=== PATIENT | male | born 1965 | race Hispanic/Latino ===

== ENCOUNTER 2017-09-03 21:37 | Inpatient (IN) | payer SELFPAY ==
[2017-09-03 22:17] LABS: Hemoglobin 7.5 g/dL (14.0-18.0); Mean Corpuscular HGB CONC 33.7 g/dL (32.0-36.0); Mean Corpuscular Hemoglobin 25.1 pg (27.0-31.0); Mean Corpuscular Volume 74.3 fl (80.0-94.0); Mean Platelet Volume 7.8 fL (7.4-10.4); Platelet Count 277 thou/uL (130-400); Red Blood Cell (RBC) Count 2.97 mill/uL (4.70-6.10); White Blood Cell (WBC) Count 10.4 thou/uL (4.8-10.8)
[2017-09-03 22:30] LABS: ALT (SGPT) 32 U/L (8-55); AST (SGOT) 48 U/L (5-34); Albumin 3.3 g/dL (3.5-5.0); Alkaline Phosphatase 68 U/L (40-150); Anion Gap 20 mmol/L (10-20); BUN (Urea Nitrogen) 85 mg/dL (8.4-25.7); Bilirubin, Total 0.4 mg/dL (0.2-1.2); Calc. Creatinine Clearance 0 mL/min (70-130); Calcium 6.3 mg/dL (7.8-10.44); Carbon Dioxide 11 mmol/L (22-29); Chloride 111 mmol/L (98-107); Estimated GFR-MDRD 6; Globulin 3.1 g/dL (2.4-3.5); Glucose 94 mg/dL (70-105); Potassium 5.7 mmol/L (3.5-5.1); Protein, Total 6.4 g/dL (6.0-8.3); Sodium 136 mmol/L (136-145)
[2017-09-03 22:37] LABS: #Basophils 0.1 thou/uL (0.0-0.2); #Eosinphils 0.3 thou/uL (0.0-0.7); #Lymphocytes 3.1 thou/uL (1.20-3.40); #Monocytes 0.6 thou/uL (0.11-0.59); #Neutrophils 6.4 thou/uL (1.40-6.50); %Eosinophils 2.5 % (0.0-10.0); %Lymphocytes 29.3 % (21.0-51.0); %Monocytes 6.2 % (0.0-10.0); Elliptocytes SLIGHT = 2-5 cells (100X) (0-1/hpf); MDiff Complete? YES; Microcytosis SLIGHT = 6-15 cells (100X) (0-5/hpf); PLT Morphology Comment Appears Adequate; Schistocytes SLIGHT = 2-5 cells (100X) (0-1/hpf)
[2017-09-03 22:46] LABS: Troponin I 0.023 ng/mL (< 0.028)
[2017-09-03 22:53] LABS: CKMB 27.7 ng/mL (0-6.6)
[2017-09-03] MEDS ORDERED: Lorazepam 2 MG/ML VIAL ONE (23:04)
[2017-09-04 00:50] LABS: Iron 38 ug/dL (65-175); Iron Binding Capacity, Total 328 mcg/dL (261-462)
[2017-09-04 00:59] LABS: Hep B Core Total Ab Non-Reactive (NonReactive); Hep B Surf AB Non-Reactive (NonReactive); Hep B Surf Ag Non-Reactive S/CO (NonReactive); Hep C IgG Ab Non-Reactive (NonReactive)
[2017-09-04 01:24] LABS: Bilirubin Negative (Negative); Blood, Urine Large (Negative); Clarity CLEAR (Clear); Glucose, Urine (Dipstick) 100 mg/dL (Negative); Leukocyte Negative (Negative); Nitrite Negative (Negative); Protein, Urine (Dipstick) 300 mg/dL (Neg-Trace); Specific Gravity, Urine 1.013 (1.002-1.036); Urobilinogen 0.2 mg/dL (0.2-1.0)
[2017-09-04 01:27] LABS: Troponin I 0.023 ng/mL (< 0.028)
[2017-09-04 01:27] LABS: Bacteria/HPF None Seen HPF (None Seen); Hyaline Casts/LPF 0-3 HYALINE CAST LPF (0-3 Hyaline); Pathc Cast-AUWi Flag 0.29 (0-2.49); Squamous Epithelial 0-3 HPF (0-3); WBC/HPF 0-3 HPF (0-3)
[2017-09-04 01:42] LABS: HBSAg Index 0.11 S/CO (0-0.99); Hep B Core Total Index 0.16 S/CO (0-0.79)
[2017-09-04 01:43] LABS: HBSAB Concentration 0.22 mIU/mL; Hep C Index 0.09 S/CO (0-0.79)
--- NOTE | 2017-09-04 02:02 | CON ---
DATE OF CONSULTATION: 09/04/2017 CONSULTING PHYSICIAN: Belinda Chung M.D. REQUESTING PHYSICIAN: Dr. Oakes, ER physician. REASON FOR CONSULTATION: Advanced kidney disease. IMPRESSION: 1. Advanced kidney disease stage 5/end-stage renal disease. 2. Hyperkalemia in the context of problem #1. 3. Severe metabolic acidosis. 4. Anemia of chronic kidney disease. 5. Likely diabetic nephropathy with anasarca/nephrotic syndrome. PLAN: 1. Emergent hemodialysis to address the hyperkalemia, severe metabolic acidosis. 2. Iron studies. 3. Erythropoiesis stimulating agent. 4. I did have an extensive discussion with the family with different modalities of dialysis and the patient is leaning towards peritoneal dialysis. 5. We will initiate dialysis indication. 6. Eventually, we will consult the surgeon to secure dialysis access including peritoneal dialysis. Meanwhile, we will have patient undergo ultrasound vein mapping to evaluate the patient's vasculatur e. 7. Renally dose all medications. 8. Further management will be dependent on the clinical course. HISTORY OF PRESENT ILLNESS: History is that of 52-year-old gentleman with longstanding diabetes aljulisa hobson complicated by retinal bleeding who has been getting his kidney care somewhere in [place] and gett ing close to the point of being initiated on hemodialysis. The patient does have baseline lower extr emity edema up to the knee; however, recently this has progressed to involve the thigh, the groin, th e scrotal area, and the penis. As a result of these, patient's panic and took the patient down to the ER in [place] from where patient was transferred over to us here given the degree of renal dy sfunction. The patient noted with a creatinine of 9, potassium of 5.7, severe metabolic acidosis and no evidence of anasarca. As a result of this, the decision has been taken to involve Renal in the m anagement of this case. The patient denies poor appetite. Denies nausea or vomiting; however, the p atient feels cold. PAST MEDICAL HISTORY: Significant for diabetes with diabetic nephropathy, diabetic retinopathy, adva nced chronic kidney disease stage 5, anemia of chronic kidney disease. MEDICATIONS: Reviewed as documented on [employer]. ALLERGIES: No known drug allergy. FAMILY HISTORY: No family history of kidney disease. SOCIAL HISTORY: The patient is . Denies alcohol, tobacco or illicit drug use. REVIEW OF SYSTEMS: As documented in the body of the history. All the other systems were reviewed an d found not to be significantly related to the presenting illness. LABORATORY INVESTIGATION: Showed a bicarbonate of 11, potassium of 5.7, creatinine 9.09 with BUN of 85. CBC showed hemoglobin of 7.5. PHYSICAL EXAMINATION: GENERAL: The patient was found to be ill looking, hemodynamically stable, afebrile. HEENT: Unremarkable. CARDIOVASCULAR SYSTEM: First and second heart sounds were heard. RESPIRATORY SYSTEM: Clear to auscultation. DIGESTIVE SYSTEM: Reviewed a distended abdomen. EXTREMITIES: Showed 4+ bilateral lower extremity edema. SKIN: No new gross rash. LYMPHATICS: No peripheral lymphadenopathy. SUMMARY: A 52-year-old gentleman with end-stage renal disease, hyperkalemia, and metabolic acidosis, who is now being admitted for further management. Thank you for this consultation. We will follow with you.
[2017-09-04] MEDS ORDERED: Ondansetron HCl/PF 4 MG/2 ML Vial IVP PRN (02:08)
[2017-09-04] MEDS ORDERED: Ondansetron ODT 4 MG TAB SL PRN (02:08)
[2017-09-04 03:19] VITALS: BMI 29.1
[2017-09-04 05:17] LABS: Troponin I 0.032 ng/mL (< 0.028)
[2017-09-04 05:43] LABS: Albumin 3.1 g/dL (3.5-5.0); Anion Gap 17 mmol/L (10-20); BUN (Urea Nitrogen) 67 mg/dL (8.4-25.7); BUN/Creatinine Ratio 9.31; Calc. Creatinine Clearance 14 mL/min (70-130); Calcium 7.3 mg/dL (7.8-10.44); Carbon Dioxide 17 mmol/L (22-29); Chloride 108 mmol/L (98-107); Estimated GFR-MDRD 8; Glucose 80 mg/dL (70-105); Phosphorus 5.5 mg/dL (2.3-4.7); Potassium 4.2 mmol/L (3.5-5.1); Sodium 138 mmol/L (136-145)
[2017-09-04] MEDS ORDERED: Tuberculin PPD 0.1 ML VIAL I-DERMAL SCH (07:00)
[2017-09-04] MEDS ORDERED: Epoetin (ESRD) 20,000 UNITS/ML SC SCH (09:00)
[2017-09-04] MEDS ORDERED: Heparin 1,000 UNITS/ML VIAL ONE ×2 (11:11)
[2017-09-04] MEDS ORDERED: Dextrose 5% in Water 1,000 ML IV PRN (11:16)
[2017-09-04] MEDS ORDERED: HumaLOG 300 UNITS/3 ML VIAL SC PRN (11:16)
[2017-09-04] MEDS ORDERED: Acetaminophen 325 MG TAB PO PRN (11:16)
[2017-09-04] MEDS ORDERED: Acetaminophen 650 MG Suppository PR PRN (11:16)
[2017-09-04] MEDS ORDERED: Dextrose 50% Abboject 50 ML SYRINGE SLOW IVP PRN (11:16)
[2017-09-04] MEDS: Acyclovir 800 mg Tablet PO SCH ×4 (11:47→23:54)
--- NOTE | 2017-09-04 11:53 | HP ---
PRIMARY CARE PHYSICIAN: Dr. Fuentes Pool in [place], [place]. CHIEF COMPLAINT: Acute renal failure. HISTORY OF PRESENT ILLNESS: is a pleasant 52-year-old gentleman who was seen at [facility] following transfer from emergency room at [facility] on 09/04/2017. He reports that he had swelling of both lower extremities below the knees since January or February o last year. He saw a busgirl in [place]. He has followup scheduled next week. Yesterday, he n oticed swelling from the waist down. He therefore went to the emergency room. He was found to be in acute renal failure. He was therefore transferred here. The patient denies any chest pain, shortne ss of breath, fevers or chills. REVIEW OF SYSTEMS: The following complete review of systems was negative, unless otherwise mentioned in the HPI or below: Constitutional: Weight loss or gain, ability to conduct usual activities. Skin: Rash, itching. Eyes: Double vision, pain. ENT/Mouth: Nose bleeding, neck stiffness, pain, tenderness. Cardiovascular: Palpitations, dyspnea on exertion, orthopnea. Respiratory: Shortness of breath, wheezing, cough, hemoptysis, fever or night sweats. Gastrointestinal: Poor appetite, abdominal pain, heartburn, nausea, vomiting, constipation, or diarr hea. Genitourinary: Urgency, frequency, dysuria, nocturia. Musculoskeletal: Pain, swelling. Neurologic/Psychiatric: Anxiety, depression. Allergy/Immunologic: Skin rash, bleeding tendency. PAST MEDICAL HISTORY: Significant for diabetes mellitus on insulin therapy, hypertension, shingles, and renal insufficiency. PAST SURGICAL HISTORY: Eye surgery. SOCIAL HISTORY: Occasional alcohol use, no recreational drug use or tobacco use. FAMILY HISTORY: Significant for diabetes mellitus. ALLERGIES: No known drug allergies. CURRENT MEDICATIONS: Include acyclovir 800 mg 5 times a day, amlodipine 10 mg daily, Lipitor 40 mg a t bedtime, Coreg 6.25 mg 2 times a day, furosemide 40 mg daily, Novolin 70/30 10 units 2 times a day, tramadol 50 mg every 6 hours as needed. PHYSICAL EXAMINATION: GENERAL: On examination, is awake and alert, not in acute distress. VITAL SIGNS: He is afebrile. Blood pressure is 140/89, pulse is 83, he is breathing at rate of 18, and saturating 96% on room air. EYES: No scleral icterus. No conjunctival pallor. ENT: Moist mucosal membranes. No oropharyngeal erythema or exudates. NECK: Supple, nontender, normal range of movement. Trachea is midline. RESPIRATORY: Accessory muscles of breathing are not active. Chest wall movements are symmetric bila terally. LUNGS: Clear to auscultation without wheeze, rhonchi or crepitations. CARDIOVASCULAR: S1 and S2 are heard, regular. LUNGS: Peripheral pulses palpable. No carotid bruit, no pericardial rub. ABDOMEN: Soft, nontender, bowel sounds are heard, no hepatomegaly, no splenomegaly. NEUROLOGIC: Cranial nerves II-XII intact. Deep tendon reflexes are 2+. MUSCULOSKELETAL: Power is 5/5 in all 4 extremities. SKIN: He has herpes zoster over the right upper back. He also has tattoos. He has edema of both lo wer extremities as well as the lower abdominal wall. LYMPHATIC: No cervical lymphadenopathy. PSYCHIATRIC: Normal mood, normal affect. Patient is oriented to person, place, and time. IMAGING DATA AND LABORATORY DATA: ' labs and investigations were reviewed. I reviewed his electrocardiogram, which shows normal sinus rhythm, with right bundle branch block. No ST changes t o suggest an acute coronary syndrome. I also reviewed his chest x-ray, which does not show any pulmo nary infiltrates. Laboratory investigations show normal white count, microcytic anemia with hemoglob in 7.5, normal platelet count, troponin I indeterminate at 0.32, normal sodium, normal potassium, almaz vated blood urea nitrogen of 67 and elevated creatinine of 7.20. Calcium is low at 7.3, phosphorus i s elevated at 5.5. Urinalysis is positive for protein, glucose and blood. ASSESSMENT AND PLAN: is a pleasant 52-year-old gentleman who was seen at [facility] on 09/04/2017. His problem list includes: 1. End-stage renal disease. is presenting with end-stage renal disease. He was seen by Nephrology Service and was started on dialysis overnight. He has a dialysis catheter in the right gr oin. After discussion with Nephrology Service, patient is leaning towards peritoneal dialysis. 2. Anemia: Likely secondary to chronic kidney disease. Erythropoietin per Nephrology Service. 3. Diabetes mellitus: Continue home medications, start Accu-Cheks and insulin sliding scale. 4. Hypertension: Monitor vital signs, titrate antihypertensives as needed. 5. Troponin elevation: Troponin is in the indeterminate range. The patient does not have any compl aints in the form of chest pain, etc. Troponin elevation could be secondary to volume overload. We will trend troponins. If worsening, patient may need a stress test to rule out ischemia on the cardi ac muscle. Many thanks for allowing me to participate in your patient's care. Please feel free to contact me wi th any questions or concerns. LEVEL OF RISK: High. LEVEL OF COMPLEXITY: High.
--- NOTE | 2017-09-04 13:26 | ULT ---
BILATERAL UPPER EXTREMITY ARTERIAL AND VENOUS DOPPLER FOR VENOUS ACCESS: HISTORY: Dialysis access. ESRD. COMPARISON: None. TECHNIQUE: Real-time, terry scale, Doppler, and spectral analysis of the bilateral upper extremity arterial and v enous systems. FINDINGS: Right Side: Brachial artery 5.8 mm Renal artery 2.6 mm Ulnar artery 1.7 mm CEPHALIC: Proximal humerus 3.3 mm Mid humerus 3.1 mm Distal 4.3 mm Elbow 2.3 mm Proximal forearm 1.0 mm Mid 3.4 mm Distal 1.2 mm BASILIC: Proximal humerus 6.7 mm Mid humerus 6.2 mm Distal 5.3 mm Elbow 3.6 mm Proximal forearm 1.5 mm Mid 1.5 mm Distal 1.5 mm Left Side: Brachial artery 5.9 mm Radial artery 2.5 mm Ulnar artery 2.4 mm CEPHALIC: Proximal humerus 4.1 mm Mid humerus 3.5 mm Distal 4.1 mm Elbow 5.0 mm Proximal forearm 3.5 mm Mid 3.8 mm Distal 2.3 mm BASILIC: Proximal humerus 7.2 mm Mid humerus 5.2 mm Distal 4.8 mm Elbow 3.8 mm Proximal forearm 1.8 mm Mid 1.7 mm Distal 1.4 mm IMPRESSION: Patent vessels with sizes as above. POS: [facility]
[2017-09-04] MEDS ORDERED: Heparin 5,000 UNITS/ML VIAL SC SCH (15:00)
[2017-09-04 16:02] LABS: Troponin I 0.019 ng/mL (< 0.028)
[2017-09-04 16:04] LABS: CKMB 16.8 ng/mL (0-6.6); Critical Call CKMBM RESULT DECREASING
[2017-09-04] MEDS ORDERED: Iron Sucrose Complex 200 MG in Sodium Chloride 0.9% 250 ML 250 ML IVPB SCH (20:00)
[2017-09-04] MEDS ORDERED: Sodium Ferric Gluconate 250 MG in Sodium Chloride 0.9% 100 ML IVPB SCH (20:00)
[2017-09-04] MEDS: Carvedilol 6.25 MG TAB PO SCH (20:43)
[2017-09-04] MEDS ORDERED: Insulin NPH/Reg Insulin Hm 300 UNITS/3 ML VIAL SC SCH ×2 (21:00)
[2017-09-04] MEDS ORDERED: Atorvastatin Calcium 40 MG TAB PO SCH (21:00)
[2017-09-04 21:32] LABS: Troponin I 0.015 ng/mL (< 0.028)
[2017-09-04 21:33] LABS: CKMB 13.5 ng/mL (0-6.6); Critical Call CKMBM RESULT DECREASING
--- NOTE | 2017-09-05 01:15 | PRG ---
DATE OF SERVICE: 09/04/2017 SUBJECTIVE: The patient is seen and examined, seems to be doing so much better as compared to yester day of presentation. OBJECTIVE: VITAL SIGNS: Afebrile with temperature 98.1, pulse 84, respiratory rate 18, O2 sat 94% with blood pr essure 136/78. HEENT: Unremarkable with moist oral mucosa. Neck is supple. No conjunctival injection or icterus. CARDIOVASCULAR: First and second sounds were heard. RESPIRATORY: Clear to auscultation. DIGESTIVE: Revealed a benign abdomen with positive bowel sounds. EXTREMITIES: No peripheral edema. SKIN: No new gross rash. LYMPHATICS: No lymphadenopathy. LABORATORY INVESTIGATION: Showed hemoglobin 7.5 as of yesterday and none was drawn today. Chemistry showed a potassium of 4.2, bicarbonate was 17, BUN of 67 with a creatinine of 7.2, phosphorus 5.5 an d calcium 7.3. IMPRESSION: 1. End-stage renal disease, just got initiated on hemodialysis. 2. Anemia of chronic kidney disease. 3. Hyperkalemia, resolved. 4. Hyperparathyroidism with hyperphosphatemia. PLAN: 1. We will continue with hemodialysis with ultrafiltration as tolerated by hemodynamics. 2. We will start iron supplementation. 3. Patient to be started on calcitriol as well as phosphorus binders. 4. Further management to be dependent on the clinical course.
[2017-09-05 05:18] LABS: #Basophils 0.1 thou/uL (0.0-0.2); #Eosinphils 0.2 thou/uL (0.0-0.7); #Lymphocytes 2.8 thou/uL (1.20-3.40); #Monocytes 0.5 thou/uL (0.11-0.59); #Neutrophils 3.7 thou/uL (1.40-6.50); %Eosinophils 2.1 % (0.0-10.0); %Lymphocytes 39.1 % (21.0-51.0); %Monocytes 7.3 % (0.0-10.0); %Neutrophils 50.5 % (42.0-75.0); Hemoglobin 7.8 g/dL (14.0-18.0); Mean Corpuscular HGB CONC 34.6 g/dL (32.0-36.0); Mean Corpuscular Hemoglobin 26.5 pg (27.0-31.0); Mean Corpuscular Volume 76.6 fl (80.0-94.0); Platelet Count 242 thou/uL (130-400); RBC Distribution Width 16.8 % (11.5-14.5); Red Blood Cell (RBC) Count 2.95 mill/uL (4.70-6.10); White Blood Cell (WBC) Count 7.2 thou/uL (4.8-10.8)
[2017-09-05 05:36] LABS: Albumin 2.7 g/dL (3.5-5.0); Anion Gap 14 mmol/L (10-20); BUN (Urea Nitrogen) 73 mg/dL (8.4-25.7); BUN/Creatinine Ratio 8.61; Calc. Creatinine Clearance 12 mL/min (70-130); Calcium 6.9 mg/dL (7.8-10.44); Carbon Dioxide 19 mmol/L (22-29); Chloride 108 mmol/L (98-107); Estimated GFR-MDRD 7; Glucose 197 mg/dL (70-105); Phosphorus 6.9 mg/dL (2.3-4.7); Potassium 4.4 mmol/L (3.5-5.1); Sodium 137 mmol/L (136-145)
[2017-09-05] MEDS ORDERED: Mag-Al 1200 mg/1200 mg/30 ML UDCUP PO PRN (07:22)
[2017-09-05] MEDS ORDERED: Loratadine 10 MG TAB PO PRN (07:22)
[2017-09-05] MEDS ORDERED: Temazepam 15 MG CAP PO PRN (07:22)
[2017-09-05] MEDS ORDERED: Sodium Chloride 0.65% Nasal 44 ML BOT EA NARE PRN (07:22)
[2017-09-05] MEDS ORDERED: Artificial Tears 18 DROP/0.9 ML EA EYE PRN (07:22)
[2017-09-05] MEDS ORDERED: Loperamide HCl 2 MG CAP PO PRN (07:22)
[2017-09-05] MEDS ORDERED: Ondansetron HCl/PF 4 MG/2 ML Vial IVP PRN (07:22)
[2017-09-05] MEDS ORDERED: Milk Of Magnesia 30 ML UDCUP PO PRN (07:22)
[2017-09-05] MEDS ORDERED: Chloraseptic Spray 180 ml Bottle PO PRN (07:22)
[2017-09-05] MEDS ORDERED: Eucerin (Mineral Oil/Petrolatum,White) 30 gm Jar TOP PRN (07:22)
[2017-09-05] MEDS ORDERED: hydrALAZINE 20 MG/ML VIAL SLOW IVP PRN (07:22)
[2017-09-05] MEDS ORDERED: Ondansetron ODT 4 MG TAB PO PRN (07:22)
[2017-09-05] MEDS ORDERED: Senokot 8.6 MG TAB PO PRN (07:22)
[2017-09-05] MEDS ORDERED: Diabetic Tussin 200 MG/10 ML UDCUP PO PRN (07:22)
[2017-09-05] MEDS ORDERED: Insulin Regular 300 UNITS/3 ML VIAL SC PRN (07:24)
[2017-09-05] MEDS: Calcium Acetate 667 MG CAP PO SCH ×3 (08:18→17:47)
[2017-09-05] MEDS: Acyclovir 800 mg Tablet PO SCH ×4 (08:18→20:59)
[2017-09-05] MEDS: Famotidine 20 MG TAB PO SCH (08:20)
[2017-09-05] MEDS: Amlodipine 10 MG TAB PO SCH ×2 (08:20→14:32)
[2017-09-05] MEDS: Carvedilol 6.25 MG TAB PO SCH ×2 (08:20→21:07)
[2017-09-05] MEDS: Ferrous Sulfate 325 MG TAB PO SCH (08:20)
[2017-09-05] MEDS: Heparin 5,000 UNITS/ML VIAL SC SCH ×2 (08:21→21:08)
[2017-09-05] MEDS: Calcitriol 0.25 MCG CAP PO SCH (08:21)
[2017-09-05] MEDS: Insulin NPH/Reg Insulin Hm 300 UNITS/3 ML VIAL SC SCH ×2 (08:22→21:06)
[2017-09-05] MEDS ORDERED: Iron Sucrose Complex 100 MG in Sodium Chloride 0.9% 100 ML IVPB SCH (09:00)
[2017-09-05] MEDS: Sodium Ferric Gluconate 125 MG in Sodium Chloride 0.9% 100 ML IVPB SCH ×2 (09:00→14:32)
[2017-09-05] MEDS ORDERED: Heparin 1,000 UNITS/ML VIAL ONE (11:11)
--- NOTE | 2017-09-05 11:20 | PDOC.PN ---
- Subjective Encounter Start Date: 09/05/17 Encounter Start Time: 07:30 -: old records requested/rev Patient seen and examined. No new complaints. No overnight events - Objective MAR Reviewed: Yes Vital Signs & Weight: Vital Signs (12 hours) Temp Pulse Resp BP BP Pulse Ox 09/05/17 08:20 82 130/74 09/05/17 08:00 98.0 F 82 18 09/05/17 07:57 98.0 F 81 18 130/74 95 09/05/17 04:00 81 18 121/75 95 09/05/17 00:00 85 18 144/83 H Weight Weight 180 lb 9.6 oz I&O: 09/04/17 09/05/17 09/06/17 06:59 06:59 06:59 Intake Total 240 Balance 240 Result Diagrams: 09/05/17 04:33 09/05/17 04:33 Additional Labs: Accuchecks 09/05/17 09/04/17 09/04/17 11:03 20:45 16:46 POC Glucose 209 H 124 H 108 09/04/17 11:10 POC Glucose 300 H EKG Reviewed by me: Yes Phys Exam - Physical Examination Constitutional: NAD HEENT: PERRLA, moist MMs, sclera anicteric Neck: no JVD, supple Respiratory: no wheezing, no rales, no rhonchi Cardiovascular: RRR, no significant murmur, no rub Gastrointestinal: soft, non-tender, no distention, positive bowel sounds Musculoskeletal: pulses present, edema present Neurological: non-focal, normal sensation, moves all 4 limbs Psychiatric: normal affect, A&O x 3 Skin: no rash, normal turgor Dx/Plan (1) ESRD needing dialysis Code(s): N18.6 - END STAGE RENAL DISEASE; Z99.2 - DEPENDENCE ON RENAL DIALYSIS Status: Acute (2) Elevated CK-MB level Code(s): R74.8 - ABNORMAL LEVELS OF OTHER SERUM ENZYMES Status: Acute (3) Anemia of renal disease Code(s): D63.1 - ANEMIA IN CHRONIC KIDNEY DISEASE Status: Acute (4) Hyperkalemia Code(s): E87.5 - HYPERKALEMIA Status: Acute (5) Metabolic acidosis Code(s): E87.2 - ACIDOSIS Status: Acute (6) Secondary hyperparathyroidism of renal origin Code(s): N25.81 - SECONDARY HYPERPARATHYROIDISM OF RENAL ORIGIN Status: Acute (7) Diabetes type 2, controlled Code(s): E11.9 - TYPE 2 DIABETES MELLITUS WITHOUT COMPLICATIONS Status: Chronic (8) Dyslipidemia Code(s): E78.5 - HYPERLIPIDEMIA, UNSPECIFIED Status: Chronic (9) Hypertension Code(s): I10 - ESSENTIAL (PRIMARY) HYPERTENSION Status: Chronic - Plan cont current plan of care, plan discussed w/ family, DVT proph w/heparin * today 2nd day for HD * check urine protein and creatinine * will need outpt HD arrangement * medication reviewed as below * symptomatic treatment. * reduce insulin 5 unit sc bid * discussed with family Review of Systems - Review of Systems Constitutional: negative: fever, chills, sweats, weakness, malaise, other Eyes: negative: Pain, Vision Change, Conjunctivae Inflammation, Eyelid Inflammation, Redness, Other ENT: negative: Ear Pain, Ear Discharge, Nose Pain, Nose Discharge, Nose Congestion, Mouth Pain, Mouth Swelling, Throat Pain, Throat Swelling, Other Respiratory: negative: Cough, Dry, Shortness of Breath, Hemoptysis, SOB with Excertion, Pleuritic Pain, Sputum, Wheezing Cardiovascular: negative: chest pain, palpitations, orthopnea, paroxysmal nocturnal dyspnea, edema, light headedness, other Gastrointestinal: negative: Nausea, Vomiting, Abdominal Pain, Diarrhea, Constipation, Melena, Hematochezia, Other Genitourinary: negative: Dysuria, Frequency, Incontinence, Hematuria, Retention , Other Musculoskeletal: negative: Neck Pain, Shoulder Pain, Arm Pain, Back Pain, Hand Pain, Leg Pain, Foot Pain, Other Skin: negative: Rash, Lesions, Abhinav, Bruising, Other - Medications/Allergies Allergies/Adverse Reactions: Allergies Allergy/AdvReac Type Severity Reaction Status Date / Time No Known Drug Allergies Allergy Verified 09/04/17 00:06 Medications: Current Medications Acetaminophen (Tylenol) 650 mg PO Q4H PRN PRN Reason: Headache/Fever or Pain Acyclovir (Zovirax) 800 mg PO 5XD [facility] Last Admin: 09/05/17 08:18 Dose: 800 mg Al Hydroxide/Mg Hydroxide (Maalox) 15 ml PO Q4H PRN PRN Reason: Heartburn or Indigestion Amlodipine Besylate (Norvasc) 10 mg PO DAILY [facility] Last Admin: 09/05/17 08:20 Dose: Not Given Artificial Tears (Tears Naturale) 0 drop EA EYE PRN PRN PRN Reason: Dry Eyes Atorvastatin Calcium (Lipitor) 40 mg PO [facility] Last Admin: 09/04/17 20:43 Dose: 40 mg Calcitriol (Rocaltrol) 0.25 mcg PO DAILY [facility] Last Admin: 09/05/17 08:21 Dose: 0.25 mcg Calcium Acetate (Phoslo) 1,334 mg PO TID[facility] Last Admin: 09/05/17 08:18 Dose: 1,334 mg Carvedilol (Coreg) 6.25 mg PO BID [facility] Last Admin: 09/05/17 08:20 Dose: 6.25 mg Dextrose/Water (Dextrose 50%) 25 gm SLOW IVP PRN PRN PRN Reason: Hypoglycemia Epoetin Reginaldo (Procrit) 7,500 units SC Q7D [facility] Last Admin: 09/04/17 09:12 Dose: 7,500 units Famotidine (Pepcid) 20 mg PO DAILY [facility] Last Admin: 09/05/17 08:20 Dose: 20 mg Ferrous Sulfate (Feosol) 325 mg PO QAM-[facility] Last Admin: 09/05/17 08:20 Dose: 325 mg Glucagon (Glucagon) 1 mg IM PRN PRN PRN Reason: Hypoglycemia Guaifenesin (Robitussin Sf) 200 mg PO Q4H PRN PRN Reason: Cough Heparin Sodium (Porcine) (Heparin) 5,000 units SC BID [facility] Last Admin: 09/05/17 08:21 Dose: 5,000 units Hydralazine HCl (Apresoline) 10 mg SLOW IVP Q4H PRN PRN Reason: Systolic BP > 180 Dextrose/Water (D5w) 1,000 mls @ 0 mls/hr IV .Q0M PRN; As Directed PRN Reason: Hypoglycemia Ferric Sodium Gluconate Complex 125 mg/ Sodium Chloride 110 mls @ 110 mls/hr IVPB [facility] Insulin Human Isoph/Insulin Regular (Humulin 70/30) 5 units SC BID [facility] Last Admin: 09/05/17 08:22 Dose: 5 unit Insulin Human Regular (Humulin R) 0 units SC .MODERATE SLIDING SC PRN PRN Reason: Moderate Correctional Scale Insulin Human Regular (Humulin R) 0 units SC .BEDTIME SLIDING SC PRN PRN Reason: Bedtime Correctional Scale Loperamide HCl (Imodium) 2 mg PO PRN PRN PRN Reason: Diarrhea/Loose Stools Loratadine (Claritin) 10 mg PO DAILYPRN PRN PRN Reason: Sinus Symptoms Magnesium Hydroxide (Milk Of Magnesium) 30 ml PO DAILYPRN PRN PRN Reason: Constipation Mineral Oil/White Petrolatum (Eucerin Cream) 0 gm TOP BIDPRN PRN PRN Reason: Dry Skin Read Ppd 1 each FS 0700 [facility] Stop: 09/06/17 09:00 Ondansetron HCl (Zofran Odt) 4 mg PO Q6H PRN PRN Reason: Nausea/Vomiting Ondansetron HCl (Zofran) 4 mg IVP Q6H PRN PRN Reason: Nausea/Vomiting Phenol (Chloraseptic Logan 180 Ml Bot) 0 ml PO PRN PRN PRN Reason: Sore Throat Senna (Senokot) 2 tab PO HSPRN PRN PRN Reason: Constipation Sodium Chloride (Flush - Normal Saline) 10 ml IVF Q12HR [facility] Last Admin: 09/05/17 08:22 Dose: 10 ml Sodium Chloride (Flush - Normal Saline) 10 ml IVF PRN PRN PRN Reason: Saline Flush Sodium Chloride ([place] Nasal Logan 0.65%) 0 ml EA NARE QIDPRN PRN PRN Reason: Nasal Congestion Temazepam (Restoril) 15 mg PO HSPRN PRN PRN Reason: Insomnia Tramadol HCl (Ultram) 50 mg PO Q6H PRN PRN Reason: Pain
[2017-09-05 11:37] LABS: Creatinine, Urine 71.92 mg/dL (63-166)
[2017-09-05] MEDS: Insulin Regular 300 UNITS/3 ML VIAL SC PRN (17:55)
[2017-09-05] MEDS: Atorvastatin Calcium 20 MG TAB PO SCH (21:08)
--- NOTE | 2017-09-06 00:04 | PRG ---
DATE OF SERVICE: 09/05/2017 SUBJECTIVE: The patient was seen and examined, very much improved, noted with the following vital si gns. PHYSICAL EXAMINATION: VITAL SIGNS: Afebrile with temperature 97.6, pulse 79, respiratory rate of 18, O2 saturation 97% wit h blood pressure 157/89. HEENT: Unremarkable with moist oral mucosa. NECK: Supple. No conjunctival injection or icterus. CARDIOVASCULAR: First and second heart sounds were heard. RESPIRATORY: Clear to auscultation. DIGESTIVE: Revealed a benign abdomen with positive bowel sounds. EXTREMITIES: No peripheral edema. SKIN: No new gross rash. LYMPHATICS: No peripheral lymphadenopathy. LABORATORY INVESTIGATIONS: Showed a hemoglobin of 7.8. Chemistry showed a bicarbonate of 19, BUN of 73 with creatinine 8.48, calcium 6.9 with phosphorus of 6.9. IMPRESSION: 1. End-stage renal disease, initiated on hemodialysis. 2. Anemia of chronic kidney disease. 3. Hyperphosphatemia with hyperparathyroidism. 4. Metabolic acidosis. PLAN: 1. Long-term dialysis access plan, therefore we will consult surgery for AV fistula placement, perit spear dialysis catheter placement on tunneled dialysis catheter. Status post placement of tunneled d ialysis catheter, we would discontinue the temporary femoral dialysis. 2. We will contact the peritoneal dialysis team for patient education/family education. 3. We will continue erythropoiesis-stimulating agent. 4. We will continue with phosphorus binders, calcium, and vitamin D supplementation. 5. Further management to be dependent on the clinical course. financial project manager will be consulted toward s outpatient dialysis placement.
[2017-09-06] MEDS: traMADol HCl 50 MG TAB PO PRN (04:24)
[2017-09-06 05:05] LABS: #Basophils 0.1 thou/uL (0.0-0.2); #Eosinphils 0.2 thou/uL (0.0-0.7); #Lymphocytes 3.4 thou/uL (1.20-3.40); #Monocytes 0.7 thou/uL (0.11-0.59); #Neutrophils 2.9 thou/uL (1.40-6.50); %Basophils 1.6 % (0.0-1.0); %Eosinophils 3.2 % (0.0-10.0); %Lymphocytes 45.8 % (21.0-51.0); %Monocytes 9.3 % (0.0-10.0); %Neutrophils 40.1 % (42.0-75.0); Hemoglobin 7.8 g/dL (14.0-18.0); Mean Corpuscular HGB CONC 33.4 g/dL (32.0-36.0); Mean Corpuscular Hemoglobin 25.8 pg (27.0-31.0); Mean Corpuscular Volume 77.2 fl (80.0-94.0); Mean Platelet Volume 8.2 fL (7.4-10.4); Platelet Count 217 thou/uL (130-400); RBC Distribution Width 16.6 % (11.5-14.5); Red Blood Cell (RBC) Count 3.03 mill/uL (4.70-6.10); White Blood Cell (WBC) Count 7.3 thou/uL (4.8-10.8)
[2017-09-06 06:07] LABS: Albumin 2.7 g/dL (3.5-5.0); Anion Gap 12 mmol/L (10-20); BUN (Urea Nitrogen) 50 mg/dL (8.4-25.7); BUN/Creatinine Ratio 7.37; Calc. Creatinine Clearance 15 mL/min (70-130); Calcium 6.9 mg/dL (7.8-10.44); Carbon Dioxide 25 mmol/L (22-29); Chloride 106 mmol/L (98-107); Estimated GFR-MDRD 9; Glucose 168 mg/dL (70-105); Potassium 4.2 mmol/L (3.5-5.1); Sodium 139 mmol/L (136-145)
[2017-09-06] MEDS ORDERED: [UNRECOGNIZED DRUG - REMARK] FS SCH (07:00)
[2017-09-06] MEDS ORDERED: CEFAZOLIN/Water 2 GM/20 ML SYRINGE SLOW IVP SCH (07:30)
[2017-09-06] MEDS ORDERED: Fentanyl 100 MCG/2 ML VIAL ONE ×2 (09:11→12:54)
[2017-09-06] MEDS ORDERED: Bupivacaine HCl 0.5%/Epinephrine 1:200,000/PF 30 ml Vial ONE (09:15)
[2017-09-06] MEDS ORDERED: Protamine Sulfate 50 MG/5 ML VIAL ONE (09:15)
[2017-09-06] MEDS ORDERED: Heparin 10,000 UNITS/1 ML VIAL ONE (09:15)
[2017-09-06] MEDS ORDERED: Bupivacaine/Epinephrine 0.25% 30 ML VIAL ONE ×2 (09:15→09:41)
[2017-09-06] MEDS ORDERED: Lidocaine 2% 10 ML INJ ONE ×2 (09:15→09:41)
[2017-09-06] MEDS ORDERED: Heparin 5,000 UNITS/ML VIAL ONE (09:15)
--- NOTE | 2017-09-06 10:12 | PDOC.PN ---
- Subjective Encounter Start Date: 09/06/17 Encounter Start Time: 07:40 Patient seen and examined. No new complaints. No overnight events - Objective MAR Reviewed: Yes Vital Signs & Weight: Vital Signs (12 hours) Temp Pulse Resp BP Pulse Ox 09/06/17 08:08 98.1 F 70 18 96 09/06/17 04:00 98.1 F 70 18 120/70 94 L Weight Weight 180 lb 9.6 oz I&O: 09/05/17 09/06/17 09/07/17 06:59 06:59 06:59 Intake Total 950 Output Total 1999 Balance -1050 Result Diagrams: 09/06/17 04:18 09/06/17 04:18 Additional Labs: Accuchecks 09/05/17 09/05/17 09/05/17 21:06 17:44 11:03 POC Glucose 182 H 276 H 209 H Phys Exam - Physical Examination Constitutional: NAD HEENT: PERRLA, moist MMs, sclera anicteric Neck: no JVD, supple Respiratory: no wheezing, no rales, no rhonchi Cardiovascular: RRR, no significant murmur, no rub Gastrointestinal: soft, non-tender, no distention, positive bowel sounds Musculoskeletal: pulses present, edema present left groin HD catheter+ Neurological: non-focal, normal sensation, moves all 4 limbs Lymphatic: no nodes Psychiatric: normal affect, A&O x 3 Skin: no rash, normal turgor Dx/Plan (1) ESRD needing dialysis Code(s): N18.6 - END STAGE RENAL DISEASE; Z99.2 - DEPENDENCE ON RENAL DIALYSIS Status: Acute (2) Elevated CK-MB level Code(s): R74.8 - ABNORMAL LEVELS OF OTHER SERUM ENZYMES Status: Acute (3) Anemia of renal disease Code(s): D63.1 - ANEMIA IN CHRONIC KIDNEY DISEASE Status: Acute (4) Hyperkalemia Code(s): E87.5 - HYPERKALEMIA Status: Acute (5) Metabolic acidosis Code(s): E87.2 - ACIDOSIS Status: Acute (6) Secondary hyperparathyroidism of renal origin Code(s): N25.81 - SECONDARY HYPERPARATHYROIDISM OF RENAL ORIGIN Status: Acute (7) Diabetes type 2, controlled Code(s): E11.9 - TYPE 2 DIABETES MELLITUS WITHOUT COMPLICATIONS Status: Chronic (8) Dyslipidemia Code(s): E78.5 - HYPERLIPIDEMIA, UNSPECIFIED Status: Chronic (9) Hypertension Code(s): I10 - ESSENTIAL (PRIMARY) HYPERTENSION Status: Chronic - Plan cont current plan of care * continue HD as per nephrology * today plan for tunneled HD catheter and possible AVF * then remove groin HD catheter * social work to arrange outpt HD * medication reviewed as below * symptomatic treatment. * dc tele * transfer to medical Review of Systems - Review of Systems ENT: negative: Ear Pain, Ear Discharge, Nose Pain, Nose Discharge, Nose Congestion, Mouth Pain, Mouth Swelling, Throat Pain, Throat Swelling, Other Respiratory: negative: Cough, Dry, Shortness of Breath, Hemoptysis, SOB with Excertion, Pleuritic Pain, Sputum, Wheezing Cardiovascular: negative: chest pain, palpitations, orthopnea, paroxysmal nocturnal dyspnea, edema, light headedness, other Gastrointestinal: negative: Nausea, Vomiting, Abdominal Pain, Diarrhea, Constipation, Melena, Hematochezia, Other Genitourinary: negative: Dysuria, Frequency, Incontinence, Hematuria, Retention , Other Musculoskeletal: negative: Neck Pain, Shoulder Pain, Arm Pain, Back Pain, Hand Pain, Leg Pain, Foot Pain, Other Skin: negative: Rash, Lesions, Abhinav, Bruising, Other - Medications/Allergies Allergies/Adverse Reactions: Allergies Allergy/AdvReac Type Severity Reaction Status Date / Time No Known Drug Allergies Allergy Verified 09/04/17 00:06 Medications: Current Medications Acetaminophen (Tylenol) 650 mg PO Q4H PRN PRN Reason: Headache/Fever or Pain Last Admin: 09/06/17 04:25 Dose: 650 mg Acyclovir (Zovirax) [address] [facility] Last Admin: 09/05/17 20:59 Dose: Not Given Al Hydroxide/Mg Hydroxide (Maalox) 15 ml PO Q4H PRN PRN Reason: Heartburn or Indigestion Amlodipine Besylate (Norvasc) [address] [facility] Last Admin: 09/05/17 14:32 Dose: 10 mg Artificial Tears (Tears Naturale) 0 drop EA EYE PRN PRN PRN Reason: Dry Eyes Atorvastatin Calcium (Lipitor) [address] [facility] Last Admin: 09/05/17 21:08 Dose: 40 mg Calcitriol (Rocaltrol) 0.[address] [facility] Last Admin: 09/05/17 08:21 Dose: 0.25 mcg Calcium Acetate (Phoslo) 1,334 mg PO [facility] Last Admin: 09/05/17 17:47 Dose: 1,334 mg Carvedilol (Coreg) 6.[address] [facility] Last Admin: 09/05/17 21:07 Dose: 6.25 mg Cefazolin Sodium (Ancef) 2 gm SLOW IVP [facility] [facility] Dextrose/Water (Dextrose 50%) 25 gm SLOW IVP PRN PRN PRN Reason: Hypoglycemia Epoetin Reginaldo (Procrit) 7,[address] [facility] Last Admin: 09/04/17 09:12 Dose: 7,500 units Famotidine (Pepcid) [address] [facility] Last Admin: 09/05/17 08:20 Dose: 20 mg Ferrous Sulfate (Feosol) 325 mg PO QA[facility] Last Admin: 09/05/17 08:20 Dose: 325 mg Glucagon (Glucagon) 1 mg IM PRN PRN PRN Reason: Hypoglycemia Guaifenesin (Robitussin Sf) 200 mg PO Q4H PRN PRN Reason: Cough Heparin Sodium (Porcine) (Heparin) 5,[address] [facility] Last Admin: 09/05/17 21:08 Dose: 5,000 units Hydralazine HCl (Apresoline) 10 mg SLOW IVP Q4H PRN PRN Reason: Systolic BP > 180 Dextrose/Water (D5w) 1,000 mls @ 0 mls/hr IV .Q0M PRN; As Directed PRN Reason: Hypoglycemia Ferric Sodium Gluconate Complex 125 mg/ Sodium Chloride 110 mls @ 110 mls/hr IVPB [facility] Last Admin: 09/05/17 14:32 Dose: 110 mls Insulin Human Isoph/Insulin Regular (Humulin 70/30) [address] [facility] Last Admin: 09/05/17 21:06 Dose: 5 unit Insulin Human Regular (Humulin R) 0 units SC .MODERATE SLIDING SC PRN PRN Reason: Moderate Correctional Scale Last Admin: 09/05/17 17:55 Dose: 6 unit Insulin Human Regular (Humulin R) 0 units SC .BEDTIME SLIDING SC PRN PRN Reason: Bedtime Correctional Scale Loperamide HCl (Imodium) 2 mg PO PRN PRN PRN Reason: Diarrhea/Loose Stools Loratadine (Claritin) 10 mg PO DAILYPRN PRN PRN Reason: Sinus Symptoms Magnesium Hydroxide (Milk Of Magnesium) 30 ml PO DAILYPRN PRN PRN Reason: Constipation Mineral Oil/White Petrolatum (Eucerin Cream) 0 gm TOP BIDPRN PRN PRN Reason: Dry Skin Ondansetron HCl (Zofran Odt) 4 mg PO Q6H PRN PRN Reason: Nausea/Vomiting Ondansetron HCl (Zofran) 4 mg IVP Q6H PRN PRN Reason: Nausea/Vomiting Phenol (Chloraseptic [place] 180 Ml Bot) 0 ml PO PRN PRN PRN Reason: Sore Throat Senna (Senokot) 2 tab PO HSPRN PRN PRN Reason: Constipation Sodium Chloride (Flush - Normal Saline) 10 ml IVF Q12HR [facility] Last Admin: 09/05/17 21:09 Dose: 10 ml Sodium Chloride (Flush - Normal Saline) 10 ml IVF PRN PRN PRN Reason: Saline Flush Sodium Chloride ([place] Nasal [place] 0.65%) 0 ml EA NARE QIDPRN PRN PRN Reason: Nasal Congestion Temazepam (Restoril) 15 mg PO HSPRN PRN PRN Reason: Insomnia Tramadol HCl (Ultram) 50 mg PO Q6H PRN PRN Reason: Pain Last Admin: 09/06/17 04:24 Dose: 50 mg
[2017-09-06] MEDS ORDERED: CEFAZOLIN/Water 2 GM/20 ML SYRINGE ONE (10:14)
[2017-09-06] MEDS ORDERED: Dextrose 50% Abboject 50 ML SYRINGE ONE (10:17)
--- NOTE | 2017-09-06 10:36 | HP ---
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 He has type 2 diabetes mellitus and hypertension and has developed chronic kidney disease culminating in end -stage renal disease. The patient had a temporary hemodialysis catheter placed in his left femoral v ein initiating dialysis. He is being seen by Dr. Trevino. I have been asked to see him regarding peritoneal dialysis catheter placement, hemodialysis catheter placement, and a primary fistula. Ult rasound vein mapping both arms. 09/04/2017, reveals cephalic vein to be of good caliber on both side s and of excellent caliber on the left. He is right handed. He has stigmata of blood draws in his l eft antecubital area, he has right hand IV. ALLERGIES: None. TOBACCO: None. ALCOHOL: None. MEDICATIONS: At home, he was taking tramadol p.r.n., insulin NPH 10 units subcu b.i.d. 70/30, furose mide 40 mg a day, carvedilol 6.25 mg b.i.d., atorvastatin 40 mg at bedtime, amlodipine 10 mg daily, a cyclovir 800 mg p.o. 5 days. PAST SURGICAL HISTORY: Eye surgery from diabetic retinopathy. PAST MEDICAL HISTORY: Type 2 diabetes mellitus, hypertension, chronic kidney disease. REVIEW OF SYSTEMS: Ten-point noncontributory otherwise. PHYSICAL EXAMINATION: VITAL SIGNS: 5 feet 6, 180 pounds, 29 BMI, 98.1, 70, 120/70. HEAD, EARS, EYES, NOSE, and THROAT: Unremarkable. LUNGS: Clear to auscultation. CARDIAC: Regular rate and rhythm without murmur or gallop. ABDOMEN: Soft, nontender, no masses. No evident hernias. EXTREMITIES: Left femoral vein hemodialysis temporary catheter present. The stigmata of bruising le ft antecubital area indicative of blood draws this hospitalization. IV right hand Hep-Lock. Palpabl e radial pulses. Neck, axillae, groins without lymphadenopathy. NEUROLOGICAL: Neurologically intact. No focal deficit. Sclerae not icteric. SKIN: Nonjaundiced. LABORATORY DATA: White count 7, hemoglobin 7.8. Sodium 139, potassium 4.2. GFR 9. ASSESSMENT AND PLAN: 1. Chronic renal failure, end-stage renal disease, initiated dialysis via temporary dialysis cathete r, left femoral vein. Today, we will plan a laparoscopic peritoneal hemodialysis catheter and placem ent of left arm primary fistula. He understands risks of infection, bleeding, reoperation, malfuncti on, secondary operations if necessary and consents. 2. Diabetes mellitus, type 2, insulin-dependent. 3. Hypertension. 4. Diabetic retinopathy with past history of eye surgeries.
[2017-09-06] MEDS ORDERED: Heparin 10,000 UNITS/ 10 ML VIAL ONE ×2 (10:53→20:27)
[2017-09-06] MEDS ORDERED: Ondansetron HCl/PF 4 MG/2 ML Vial ONE (10:53)
[2017-09-06] MEDS ORDERED: Glycopyrrolate 0.2 MG/ML 5 ML SYRINGE ONE (10:53)
[2017-09-06] MEDS ORDERED: Lidocaine 1% PF 5 ML VIAL ONE (10:53)
[2017-09-06] MEDS ORDERED: ePHEDrine/0.9% NaCl/PF SYRINGE 50 mg/10 ml ONE (10:53)
[2017-09-06] MEDS ORDERED: PROPOFOL 200 MG/20 ML VIAL ONE (10:53)
[2017-09-06] MEDS ORDERED: Acetaminophen 500 MG TAB PO PRN (11:13)
[2017-09-06] MEDS ORDERED: traMADol HCl 50 MG TAB PO PRN (11:13)
[2017-09-06] MEDS ORDERED: Iothalamate Meglumine 60% 50 ML VIAL FS ONE (12:01)
[2017-09-06] MEDS ORDERED: Promethazine HCl 25 MG/ML VIAL SLOW IVP PRN (12:40)
[2017-09-06] MEDS ORDERED: Ondansetron HCl/PF 4 MG/2 ML Vial IVP PRN (12:40)
[2017-09-06] MEDS ORDERED: Promethazine HCl 25 MG/ML VIAL IM PRN (12:40)
--- NOTE | 2017-09-06 12:57 | OP ---
DATE OF PROCEDURE: 09/06/2017 PREOPERATIVE DIAGNOSIS: End-stage renal disease. POSTOPERATIVE DIAGNOSIS: End-stage renal disease. PROCEDURE: Ultrasound fluoroscopy used to place a right IJ cuffed tunnel hemodialysis catheter, prec urved angiodynamics. Laparoscopic peritoneal dialysis catheter placement, double cuffed pigtail. La paroscopic omentopexy. Left arm Kathleen fistula, cephalic vein calibrated to 4 mm coronary dilator wi thout obstruction, clipping of collaterals. SURGEON: Dr. John Horan ANESTHESIA: General. Local 0.25% Marcaine with epinephrine, 30 mL, mixed with 2% Xylocaine, 10 mL. PROCEDURE: The patient was taken to the operating room where under general anesthesia, neck, chest a nd abdomen prepared with ChloraPrep, draped in routine fashion. Local anesthetic infiltrated into th e skin and subcutaneous tissue about the operative site. Using ultrasound guidance, the right architecture internship al jugular vein was cannulated with a trocar catheter. J-wire threaded, trocar catheter removed. Sk in incised enlarged sharply. Stab incision over the right chest. Using the tunneling device, precur rekha angiodynamics cuffed tunnel hemodialysis catheter tunneled between two incisions, placing the yayo tita cuff beneath the skin exit site, catheter secured with 2 interrupted sutures of 3-0 nylon and Bio patch sterile dressing applied. Smaller and medium sized dilators placed over the J-wire in the supe rior vena cava and removed. Guidewire and pull-away sheath placed over the J-wire in superior vena c chrystal and dilator and J-wire removed. Catheter placed with pull-away sheath and pull-away sheath remov ed. Fluoroscopic catheter noted to be in good position and platysma approximately 4-0 Monocryl, skin with subdermal 4-0 Monocryl. DermaGlue and sterile dressings applied. Each port aspirated of blood and flushed with saline solution and heparinized saline solution 1000 units heparin per mL indicated volume of the port. Bilateral far lateral subcostal incision made. Pneumoperitoneum to 15 mmHg obtained with Veress need le, replacing it with a 5 port after pneumoperitoneum to 15 mmHg obtained. The contralateral 5 mm po rt placed under laparoscopic visualization. Stab incision made in the left lower quadrant for a coun terincision paraumbilical left and a stab incision made more dependently in the left lower quadrant f or the exit site. An 8 mm port placed under laparoscopic visualization directed caudally through thi s counter incision to the subcutaneous tissue into the rectus sheath and penetrating the abdominal ca vity inferiorly placing the double cuffed pigtail peritoneal dialysis catheter with the internal cuff in the rectus sheath and the pigtail dependently in the pelvis. A [place] dissector used for the t unneler placed through the planned exit site to the counter incision, grasping the catheter pulling t he external cuff beneath the skin access site and subcutaneous tissues approximated with 3-0 Monocryl , skin with subdermal 4-0 Monocryl and catheter were flushed with heparin solution used saline soluti on 10 mL 1000 units heparin per mL and sterile Dermabond sterile dressings applied. Catheter noted t o be dependently in the pelvis. Omentum was very scant although questionably would reach into the pe lvis, thus omentopexy was performed laparoscopic with transabdominal fixation suture of 2-0 Vicryl. Once this was completed, pneumoperitoneum evacuated. Liver and abdominal structures noted to be norm al. Pneumoperitoneum and irrigant evacuated. Good hemostasis noted. This port site incision closed with interrupted subdermal 4-0 Monocryl and DermaGlue applied. The left upper extremity was prepared with ChloraPrep, draped in routine fashion. Incision was made longitudinally in the left wrist longitudinally between the radial artery and cephalic vein, both of which were dissected free, dividing branch between 4-0 silk ties and clips. The patient was given 60 00 units heparin intravenously. After adequate circulation time, the cephalic vein on the hand side was ligated with 3-0 silk tie, divided and spatulated with the Haas scissors and interrogated with c oronary dilators, passing coronary dilators from a 2 mm to a 4 mm coronary dilator without obstructio n. It was then flushed with heparin saline solution. A longitudinal arteriotomy made for 3 cm anast omosis and the radial artery and initially sharped elongated with the Haas scissors and end vein to side radial anastomosis with continuous suture of 6-0 Prolene. Good hemostasis noted. The final kno ts were tied and there was good Doppler signal in the venous fistula outflow. There was a collateral vein proximally medially clipped. Subcutaneous tissues approximated with 3-0 Monocryl, skin with juarez bdermal 4-0 Monocryl and DermaGlue applied.
[2017-09-06] MEDS: Heparin 5,000 UNITS/ML VIAL SC SCH ×2 (13:00→22:11)
[2017-09-06] MEDS: Acyclovir 800 mg Tablet PO SCH ×2 (13:00→22:10)
[2017-09-06] MEDS: Insulin NPH/Reg Insulin Hm 300 UNITS/3 ML VIAL SC SCH ×2 (13:00→22:18)
[2017-09-06] MEDS: Carvedilol 6.25 MG TAB PO SCH ×2 (13:00→22:11)
--- NOTE | 2017-09-06 13:25 | RAD ---
CHEST ONE VIEW: Comparison: 09-03-17 History: Central line placement. FINDINGS: Interval placement of right sided HemoSplit dialysis catheter. No pneumothorax. Stable aeration of po ng parenchyma and stable configuration of the cardiac silhouette. No pleural effusion. IMPRESSION: Right sided HemoSplit dialysis catheter with the distal tip projecting over the SVC/right atrial junc tion. No pneumothorax. POS: DEVIN
[2017-09-06] MEDS: Calcium Acetate 667 MG CAP PO SCH ×3 (15:22→16:55)
[2017-09-06] MEDS: Ferrous Sulfate 325 MG TAB PO SCH (16:49)
[2017-09-06] MEDS: Famotidine 20 MG TAB PO SCH (16:50)
[2017-09-06] MEDS: Calcitriol 0.25 MCG CAP PO SCH (16:50)
[2017-09-06] MEDS: Amlodipine 10 MG TAB PO SCH (16:56)
[2017-09-06] MEDS: Insulin Regular 300 UNITS/3 ML VIAL SC PRN (17:02)
[2017-09-06] MEDS: Sodium Ferric Gluconate 125 MG in Sodium Chloride 0.9% 100 ML IVPB SCH (19:49)
[2017-09-06] MEDS: Atorvastatin Calcium 20 MG TAB PO SCH (22:11)
--- NOTE | 2017-09-06 22:11 | EKG ---
Test Reason : PREOP Blood Pressure : / mmHG Vent. Rate : 072 BPM Atrial Rate : 072 BPM P-R Int : 188 ms QRS Dur : 166 ms QT Int : 460 ms P-R-T Axes : 053 -77 -03 degrees QTc Int : 503 ms Normal sinus rhythm Left axis deviation Right bundle branch block Abnormal ECG No previous ECGs available Confirmed by KANDACE ARTEAGA M.D. ([id number] on 09/06/2017 10:10:26 PM Referred By: CASSIA Confirmed By:KANDACE ARTEAGA M.D.
[2017-09-07] MEDS ORDERED: Tamsulosin HCl 0.4 MG CAP PO SCH (01:00)
[2017-09-07 05:40] LABS: #Basophils 0.1 thou/uL (0.0-0.2); #Eosinphils 0.1 thou/uL (0.0-0.7); #Lymphocytes 1.7 thou/uL (1.20-3.40); #Monocytes 0.7 thou/uL (0.11-0.59); #Neutrophils 7.6 thou/uL (1.40-6.50); %Basophils 0.9 % (0.0-1.0); %Eosinophils 0.7 % (0.0-10.0); %Lymphocytes 16.4 % (21.0-51.0); %Monocytes 7.3 % (0.0-10.0); %Neutrophils 74.8 % (42.0-75.0); Hemoglobin 8.5 g/dL (14.0-18.0); Mean Corpuscular HGB CONC 32.6 g/dL (32.0-36.0); Mean Corpuscular Hemoglobin 25.6 pg (27.0-31.0); Mean Corpuscular Volume 78.4 fl (80.0-94.0); Mean Platelet Volume 8.6 fL (7.4-10.4); Platelet Count 217 thou/uL (130-400); RBC Distribution Width 16.8 % (11.5-14.5); Red Blood Cell (RBC) Count 3.32 mill/uL (4.70-6.10); White Blood Cell (WBC) Count 10.1 thou/uL (4.8-10.8)
--- NOTE | 2017-09-07 08:51 | PRG ---
DATE OF SERVICE: 09/06/2017 SUBJECTIVE: The patient was seen and examined, seems to be doing much better, noted with the followi ng vital signs. PHYSICAL EXAMINATION: VITAL SIGNS: Afebrile with temperature 97.4, pulse 76, respiratory rate of 16, O2 sat 94% with blood pressure 153/89. HEENT: Unremarkable with moist oral mucosa. NECK: Supple. No conjunctival injection or icterus. CARDIOVASCULAR: First and second heart sounds were heard. RESPIRATORY: Clear to auscultation. DIGESTIVE: Revealed a benign abdomen with positive bowel sounds. EXTREMITIES: No peripheral edema. SKIN: No new gross rash. LYMPHATICS: No peripheral lymphadenopathy. LABORATORY INVESTIGATION: Showed creatinine of 6.78; BUN of 50; phosphorus 5, down from 6.9; calcium of 6.9. IMPRESSION: 1. End-stage renal disease, hemodialysis dependent. 2. Hyperphosphatemia with secondary hyperparathyroidism. 3. Anemia of chronic kidney disease. PLAN: 1. The patient will seek hemodialysis access today, therefore, a tunneled dialysis catheter fistula and peritoneal dialysis catheter placement to be carried out today. 2. Dialysis education as he relates to home peritoneal dialysis to be initiated today. 3. 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 4. Further management will be dependent on the clinical course.
[2017-09-07] MEDS: Calcium Acetate 667 MG CAP PO SCH ×3 (09:04→16:56)
[2017-09-07] MEDS: Famotidine 20 MG TAB PO SCH (09:05)
[2017-09-07] MEDS: Insulin NPH/Reg Insulin Hm 300 UNITS/3 ML VIAL SC SCH ×2 (09:05→20:10)
[2017-09-07] MEDS: Heparin 5,000 UNITS/ML VIAL SC SCH ×2 (10:16→20:09)
[2017-09-07] MEDS: Ferrous Sulfate 325 MG TAB PO SCH (12:00)
[2017-09-07] MEDS: Acyclovir 800 mg Tablet PO SCH ×2 (12:00→20:11)
[2017-09-07] MEDS: Calcitriol 0.25 MCG CAP PO SCH (12:00)
[2017-09-07] MEDS: Polyethylene Glycol 3350 17 GM Packet PO SCH (12:01)
[2017-09-07] MEDS: Amlodipine 10 MG TAB PO SCH (12:01)
[2017-09-07] MEDS: Carvedilol 6.25 MG TAB PO SCH ×2 (12:01→20:13)
--- NOTE | 2017-09-07 12:33 | PDOC.PN ---
- Subjective Encounter Start Date: 09/07/17 Encounter Start Time: 08:15 Patient seen and examined. No new complaints. No overnight events - Objective MAR Reviewed: Yes Vital Signs & Weight: Vital Signs (12 hours) Temp Pulse Resp BP BP Pulse Ox 09/07/17 12:01 83 136/80 09/07/17 07:20 98.2 F 83 18 09/07/17 04:00 98.2 F 83 18 122/70 94 L Weight Weight 180 lb 9.6 oz I&O: 09/06/17 09/07/17 09/08/17 06:59 06:59 06:59 Intake Total 950 Output Total 1999 1025 Balance -4600 -8363 Result Diagrams: 09/07/17 04:00 09/06/17 04:18 Additional Labs: Accuchecks 09/07/17 09/07/17 09/06/17 12:01 05:15 19:41 POC Glucose 111 H 123 H 131 H 09/06/17 09/06/17 17:02 10:10 POC Glucose 175 H 83 Phys Exam - Physical Examination Constitutional: NAD HEENT: PERRLA, moist MMs, sclera anicteric Neck: no JVD, supple Respiratory: no wheezing, no rales, no rhonchi Cardiovascular: RRR, no significant murmur, no rub Gastrointestinal: soft, non-tender, no distention, positive bowel sounds Musculoskeletal: no edema, pulses present Neurological: non-focal, normal sensation, moves all 4 limbs Lymphatic: no nodes Psychiatric: normal affect, A&O x 3 Skin: no rash, normal turgor Dx/Plan (1) ESRD needing dialysis Code(s): N18.6 - END STAGE RENAL DISEASE; Z99.2 - DEPENDENCE ON RENAL DIALYSIS Status: Acute Comment: started on HD, dialysis access procedure done (2) Elevated CK-MB level Code(s): R74.8 - ABNORMAL LEVELS OF OTHER SERUM ENZYMES Status: Acute (3) Anemia of renal disease Code(s): D63.1 - ANEMIA IN CHRONIC KIDNEY DISEASE Status: Acute (4) Hyperkalemia Code(s): E87.5 - HYPERKALEMIA Status: Resolved (5) Metabolic acidosis Code(s): E87.2 - ACIDOSIS Status: Resolved (6) Secondary hyperparathyroidism of renal origin Code(s): N25.81 - SECONDARY HYPERPARATHYROIDISM OF RENAL ORIGIN Status: Acute (7) Diabetes type 2, controlled Code(s): E11.9 - TYPE 2 DIABETES MELLITUS WITHOUT COMPLICATIONS Status: Chronic (8) Dyslipidemia Code(s): E78.5 - HYPERLIPIDEMIA, UNSPECIFIED Status: Chronic (9) Hypertension Code(s): I10 - ESSENTIAL (PRIMARY) HYPERTENSION Status: Chronic - Plan cont current plan of care, plan discussed w/ family, social science manager * continue HD as per nephrology * medication reviewed as below * symptomatic treatment * patient case manager to arrange outpt HD . Review of Systems - Review of Systems ENT: negative: Ear Pain, Ear Discharge, Nose Pain, Nose Discharge, Nose Congestion, Mouth Pain, Mouth Swelling, Throat Pain, Throat Swelling, Other Respiratory: negative: Cough, Dry, Shortness of Breath, Hemoptysis, SOB with Excertion, Pleuritic Pain, Sputum, Wheezing Cardiovascular: negative: chest pain, palpitations, orthopnea, paroxysmal nocturnal dyspnea, edema, light headedness, other Gastrointestinal: negative: Nausea, Vomiting, Abdominal Pain, Diarrhea, Constipation, Melena, Hematochezia, Other Genitourinary: negative: Dysuria, Frequency, Incontinence, Hematuria, Retention , Other Musculoskeletal: negative: Neck Pain, Shoulder Pain, Arm Pain, Back Pain, Hand Pain, Leg Pain, Foot Pain, Other Skin: negative: Rash, Lesions, Abhinav, Bruising, Other - Medications/Allergies Allergies/Adverse Reactions: Allergies Allergy/AdvReac Type Severity Reaction Status Date / Time No Known Drug Allergies Allergy Verified 09/04/17 00:06 Medications: Current Medications Acetaminophen (Tylenol) 650 mg PO Q4H PRN PRN Reason: Headache/Fever or Pain Last Admin: 09/06/17 04:25 Dose: 650 mg Acetaminophen (Tylenol) 1,000 mg PO Q6H PRN PRN Reason: Moderate to Severe Pain (6-10) Acyclovir (Zovirax) 800 mg PO Q12HR [facility] Last Admin: 09/07/17 12:00 Dose: 800 mg Al Hydroxide/Mg Hydroxide (Maalox) 15 ml PO Q4H PRN PRN Reason: Heartburn or Indigestion Amlodipine Besylate (Norvasc) 10 mg PO DAILY [facility] Last Admin: 09/07/17 12:01 Dose: 10 mg Artificial Tears (Tears Naturale) 0 drop EA EYE PRN PRN PRN Reason: Dry Eyes Atorvastatin Calcium (Lipitor) 40 mg [address] [facility] Last Admin: 09/06/17 22:11 Dose: 40 mg Calcitriol (Rocaltrol) 0.25 mcg PO DAILY [facility] Last Admin: 09/07/17 12:00 Dose: 0.25 mcg Calcium Acetate (Phoslo) 1,334 mg PO TID-[facility] Last Admin: 09/07/17 12:00 Dose: 1,334 mg Carvedilol (Coreg) 6.25 mg PO BID [facility] Last Admin: 09/07/17 12:01 Dose: 6.25 mg Cefazolin Sodium (Ancef) 2 gm SLOW IVP [facility] Dextrose/Water (Dextrose 50%) 25 gm SLOW IVP PRN PRN PRN Reason: Hypoglycemia Epoetin Reginaldo (Procrit) 7,500 units SC Q7D [facility] Last Admin: 09/04/17 09:12 Dose: 7,500 units Famotidine (Pepcid) 20 mg PO DAILY [facility] Last Admin: 09/07/17 09:05 Dose: Not Given Ferrous Sulfate (Feosol) 325 mg PO QAM-[facility] Last Admin: 09/07/17 12:00 Dose: 325 mg Glucagon (Glucagon) 1 mg IM PRN PRN PRN Reason: Hypoglycemia Guaifenesin (Robitussin Sf) 200 mg PO Q4H PRN PRN Reason: Cough Heparin Sodium (Porcine) (Heparin) 5,000 units SC BID [facility] Last Admin: 09/07/17 10:16 Dose: Not Given Hydralazine HCl (Apresoline) 10 mg SLOW IVP Q4H PRN PRN Reason: Systolic BP > 180 Dextrose/Water (D5w) 1,000 mls @ 0 mls/hr IV .Q0M PRN; As Directed PRN Reason: Hypoglycemia Ferric Sodium Gluconate Complex 125 mg/ Sodium Chloride 110 mls @ 110 mls[facility] Last Admin: 09/06/17 19:49 Dose: Not Given Insulin Human Isoph/Insulin Regular (Humulin 70/30) 5 units SC BID [facility] Last Admin: 09/07/17 09:05 Dose: Not Given Insulin Human Regular (Humulin R) 0 units SC .MODERATE SLIDING SC PRN PRN Reason: Moderate Correctional Scale Last Admin: 09/06/17 17:02 Dose: 2 unit Insulin Human Regular (Humulin R) 0 units SC .BEDTIME SLIDING SC PRN PRN Reason: Bedtime Correctional Scale Loperamide HCl (Imodium) 2 mg PO PRN PRN PRN Reason: Diarrhea/Loose Stools Loratadine (Claritin) 10 mg PO DAILYPRN PRN PRN Reason: Sinus Symptoms Magnesium Hydroxide (Milk Of Magnesium) 30 ml PO DAILYPRN PRN PRN Reason: Constipation Mineral Oil/White Petrolatum (Eucerin Cream) 0 gm TOP BIDPRN PRN PRN Reason: Dry Skin Ondansetron HCl (Zofran Odt) 4 mg PO Q6H PRN PRN Reason: Nausea/Vomiting Ondansetron HCl (Zofran) 4 mg IVP Q6H PRN PRN Reason: Nausea/Vomiting Phenol (Chloraseptic [place] 180 Ml Bot) 0 ml PO PRN PRN PRN Reason: Sore Throat Polyethylene Glycol (Miralax) 17 gm PO DAILY [facility] Last Admin: 09/07/17 12:01 Dose: 17 gm Senna (Senokot) 2 tab PO HSPRN PRN PRN Reason: Constipation Sodium Chloride (Flush - Normal Saline) 10 ml IVF Q12HR [facility] Last Admin: 09/07/17 09:05 Dose: Not Given Sodium Chloride (Flush - Normal Saline) 10 ml IVF PRN PRN PRN Reason: Saline Flush Sodium Chloride ([place] Nasal [place] 0.65%) 0 ml EA NARE QIDPRN PRN PRN Reason: Nasal Congestion Tamsulosin HCl (Flomax) 0.4 mg PO HS [facility] Temazepam (Restoril) 15 mg PO HSPRN PRN PRN Reason: Insomnia Tramadol HCl (Ultram) 50 mg PO Q6H PRN PRN Reason: Pain Last Admin: 09/06/17 04:24 Dose: 50 mg Tramadol HCl (Ultram) 100 mg PO Q12H PRN PRN Reason: Pain Last Admin: 09/06/17 22:23 Dose: 100 mg
[2017-09-07] MEDS: Sodium Ferric Gluconate 125 MG in Sodium Chloride 0.9% 100 ML IVPB SCH (14:10)
--- NOTE | 2017-09-07 17:59 | PRG ---
DATE OF SERVICE: 09/07/2017 SUBJECTIVE: The patient is seen and examined today. Seems to be doing very okay. Tolerating dialys is very well and noted with the following vital signs. PHYSICAL EXAMINATION: VITAL SIGNS: Afebrile, temperature 98.2, pulse 83, respiratory rate of 18, blood pressure 136/80. HEENT: Unremarkable. Moist oral mucosa. Neck was supple. No conjunctival injection or icterus. CARDIOVASCULAR SYSTEM: First and second heart sounds were heard. RESPIRATORY SYSTEM: Clear to auscultation. DIGESTIVE SYSTEM: Revealed a benign abdomen and the presence of the peritoneal dialysis catheter in place. EXTREMITIES: Showed improved peripheral edema. NEUROLOGIC: Alert, oriented. No lateralizing signs. IMPRESSION: 1. End-stage renal disease, hemodialysis dependent. 2. Status post peritoneal dialysis, tunnel dialysis and fistula placement. 3. Anemia of chronic kidney disease. PLAN: 1. Patient to continue with hemodialysis. Today is day 09/08. Therefore, we will skip tomorrow and d ialyze the patient on Wednesday. Now, patient to remain on Wednesday, Wednesday, Wednesday schedule. 2. Outpatient dialysis placement in progress. respiratory manager is involved and peritoneal dialysis is n ot indicated. 3. Further management will be dependent on the clinical course.
[2017-09-07] MEDS: Tamsulosin HCl 0.4 MG CAP PO SCH (20:12)
[2017-09-07] MEDS: Atorvastatin Calcium 20 MG TAB PO SCH (20:12)
[2017-09-08] MEDS: Polyethylene Glycol 3350 17 GM Packet PO SCH (07:48)
[2017-09-08] MEDS: Calcitriol 0.25 MCG CAP PO SCH (07:49)
[2017-09-08] MEDS: Famotidine 20 MG TAB PO SCH (07:49)
[2017-09-08] MEDS: Ferrous Sulfate 325 MG TAB PO SCH (07:49)
[2017-09-08] MEDS: Calcium Acetate 667 MG CAP PO SCH ×3 (07:49→16:11)
[2017-09-08] MEDS: Amlodipine 10 MG TAB PO SCH (07:50)
[2017-09-08] MEDS: Carvedilol 6.25 MG TAB PO SCH ×2 (07:51→19:59)
[2017-09-08] MEDS: Heparin 5,000 UNITS/ML VIAL SC SCH ×2 (07:56→19:58)
[2017-09-08] MEDS: Insulin NPH/Reg Insulin Hm 300 UNITS/3 ML VIAL SC SCH ×2 (07:56→20:00)
[2017-09-08] MEDS: Sodium Ferric Gluconate 125 MG in Sodium Chloride 0.9% 100 ML IVPB SCH (10:21)
--- NOTE | 2017-09-08 10:32 | PDOC.PN ---
- Subjective Encounter Start Date: 09/08/17 Encounter Start Time: 09:00 Patient seen and examined. No new complaints. No overnight events - Objective MAR Reviewed: Yes Vital Signs & Weight: Vital Signs (12 hours) Temp Pulse Resp BP BP BP Pulse Ox 09/08/17 08:01 98.1 F 77 18 123/66 93 L 09/08/17 07:59 98.6 F 77 16 09/08/17 07:51 117/72 09/08/17 07:50 77 09/08/17 04:00 98.6 F 77 18 106/66 09/08/17 00:00 98.6 F 76 18 99/58 L 94 L Weight Weight 180 lb 9.6 oz I&O: 09/07/17 09/08/17 09/09/17 06:59 06:59 06:59 Intake Total 1000 Output Total 4401 4630 Balance -8315 -1341 Result Diagrams: 09/07/17 04:00 09/06/17 04:18 Additional Labs: Accuchecks 09/08/17 09/07/17 09/07/17 04:44 19:53 16:00 POC Glucose 118 H 292 H 179 H 09/07/17 12:01 POC Glucose 111 H EKG Reviewed by me: Yes Phys Exam - Physical Examination Constitutional: NAD HEENT: PERRLA, moist MMs, sclera anicteric Neck: no JVD, supple Respiratory: no wheezing, no rales, no rhonchi Cardiovascular: RRR, no significant murmur, no rub Gastrointestinal: soft, non-tender, no distention, positive bowel sounds Musculoskeletal: no edema, pulses present Neurological: non-focal, normal sensation, moves all 4 limbs Psychiatric: normal affect, A&O x 3 Skin: no rash, normal turgor Dx/Plan (1) ESRD needing dialysis Code(s): N18.6 - END STAGE RENAL DISEASE; Z99.2 - DEPENDENCE ON RENAL DIALYSIS Status: Acute Comment: started on HD, dialysis access procedure done (2) Elevated CK-MB level Code(s): R74.8 - ABNORMAL LEVELS OF OTHER SERUM ENZYMES Status: Acute (3) Anemia of renal disease Code(s): D63.1 - ANEMIA IN CHRONIC KIDNEY DISEASE Status: Acute (4) Hyperkalemia Code(s): E87.5 - HYPERKALEMIA Status: Resolved (5) Metabolic acidosis Code(s): E87.2 - ACIDOSIS Status: Resolved (6) Secondary hyperparathyroidism of renal origin Code(s): N25.81 - SECONDARY HYPERPARATHYROIDISM OF RENAL ORIGIN Status: Acute (7) Diabetes type 2, controlled Code(s): E11.9 - TYPE 2 DIABETES MELLITUS WITHOUT COMPLICATIONS Status: Chronic (8) Dyslipidemia Code(s): E78.5 - HYPERLIPIDEMIA, UNSPECIFIED Status: Chronic (9) Hypertension Code(s): I10 - ESSENTIAL (PRIMARY) HYPERTENSION Status: Chronic - Plan cont current plan of care, social scientist * medication reviewed as below * symptomatic treatment * await outpt HD arrangement * otherwise stable. Review of Systems - Review of Systems ENT: negative: Ear Pain, Ear Discharge, Nose Pain, Nose Discharge, Nose Congestion, Mouth Pain, Mouth Swelling, Throat Pain, Throat Swelling, Other Respiratory: negative: Cough, Dry, Shortness of Breath, Hemoptysis, SOB with Excertion, Pleuritic Pain, Sputum, Wheezing Cardiovascular: negative: chest pain, palpitations, orthopnea, paroxysmal nocturnal dyspnea, edema, light headedness, other Gastrointestinal: negative: Nausea, Vomiting, Abdominal Pain, Diarrhea, Constipation, Melena, Hematochezia, Other Genitourinary: negative: Dysuria, Frequency, Incontinence, Hematuria, Retention , Other Musculoskeletal: negative: Neck Pain, Shoulder Pain, Arm Pain, Back Pain, Hand Pain, Leg Pain, Foot Pain, Other Skin: negative: Rash, Lesions, Abhinav, Bruising, Other - Medications/Allergies Allergies/Adverse Reactions: Allergies Allergy/AdvReac Type Severity Reaction Status Date / Time No Known Drug Allergies Allergy Verified 09/04/17 00:06 Medications: Current Medications Acetaminophen (Tylenol) 650 mg PO Q4H PRN PRN Reason: Headache/Fever or Pain Last Admin: 09/06/17 04:25 Dose: 650 mg Acetaminophen (Tylenol) 1,000 mg PO Q6H PRN PRN Reason: Moderate to Severe Pain (6-10) Al Hydroxide/Mg Hydroxide (Maalox) 15 ml PO Q4H PRN PRN Reason: Heartburn or Indigestion Amlodipine Besylate (Norvasc) 10 mg PO DAILY [facility] Last Admin: 09/08/17 07:50 Dose: Not Given Artificial Tears (Tears Naturale) 0 drop EA EYE PRN PRN PRN Reason: Dry Eyes Atorvastatin Calcium (Lipitor) 40 mg PO HS [facility] Last Admin: 09/07/17 20:12 Dose: 40 mg Calcitriol (Rocaltrol) 0.25 mcg PO DAILY [facility] Last Admin: 09/08/17 07:49 Dose: 0.25 mcg Calcium Acetate (Phoslo) 1,334 mg PO TID[facility] Last Admin: 09/08/17 07:49 Dose: 1,334 mg Carvedilol (Coreg) 6.25 mg PO BID [facility] Last Admin: 09/08/17 07:51 Dose: Not Given Cefazolin Sodium (Ancef) 2 gm SLOW IVP WILLCALL [facility] Dextrose/Water (Dextrose 50%) 25 gm SLOW IVP PRN PRN PRN Reason: Hypoglycemia Epoetin Reginaldo (Procrit) 7,500 units SC Q7D [facility] Last Admin: 09/04/17 09:12 Dose: 7,500 units Famotidine (Pepcid) 20 mg PO DAILY [facility] Last Admin: 09/08/17 07:49 Dose: 20 mg Ferrous Sulfate (Feosol) 325 mg PO QAM-[facility] Last Admin: 09/08/17 07:49 Dose: 325 mg Glucagon (Glucagon) 1 mg IM PRN PRN PRN Reason: Hypoglycemia Guaifenesin (Robitussin Sf) 200 mg PO Q4H PRN PRN Reason: Cough Heparin Sodium (Porcine) (Heparin) 5,000 units SC BID [facility] Last Admin: 09/08/17 07:56 Dose: Not Given Hydralazine HCl (Apresoline) 10 mg SLOW IVP Q4H PRN PRN Reason: Systolic BP > 180 Dextrose/Water (D5w) 1,000 mls @ 0 mls/hr IV .Q0M PRN; As Directed PRN Reason: Hypoglycemia Ferric Sodium Gluconate Complex 125 mg/ Sodium Chloride 110 mls @ 110 mls/hr IVPB QAM [facility] Last Admin: 09/08/17 10:21 Dose: 110 mls Insulin Human Isoph/Insulin Regular (Humulin 70/30) 5 units SC BID [facility] Last Admin: 09/08/17 07:56 Dose: Not Given Insulin Human Regular (Humulin R) 0 units SC .MODERATE SLIDING SC PRN PRN Reason: Moderate Correctional Scale Last Admin: 09/06/17 17:02 Dose: 2 unit Insulin Human Regular (Humulin R) 0 units SC .BEDTIME SLIDING SC PRN PRN Reason: Bedtime Correctional Scale Loperamide HCl (Imodium) 2 mg PO PRN PRN PRN Reason: Diarrhea/Loose Stools Loratadine (Claritin) 10 mg PO DAILYPRN PRN PRN Reason: Sinus Symptoms Magnesium Hydroxide (Milk Of Magnesium) 30 ml PO DAILYPRN PRN PRN Reason: Constipation Mineral Oil/White Petrolatum (Eucerin Cream) 0 gm TOP BIDPRN PRN PRN Reason: Dry Skin Ondansetron HCl (Zofran Odt) 4 mg PO Q6H PRN PRN Reason: Nausea/Vomiting Ondansetron HCl (Zofran) 4 mg IVP Q6H PRN PRN Reason: Nausea/Vomiting Phenol (Chloraseptic [place] 180 Ml Bot) 0 ml PO PRN PRN PRN Reason: Sore Throat Polyethylene Glycol (Miralax) 17 gm PO DAILY [facility] Last Admin: 09/08/17 07:48 Dose: 17 gm Senna (Senokot) 2 tab PO HSPRN PRN PRN Reason: Constipation Sodium Chloride (Flush - Normal Saline) 10 ml IVF Q12HR [facility] Last Admin: 09/08/17 07:56 Dose: 10 ml Sodium Chloride (Flush - Normal Saline) 10 ml IVF PRN PRN PRN Reason: Saline Flush Sodium Chloride ([place] Nasal [place] 0.65%) 0 ml EA NARE QIDPRN PRN PRN Reason: Nasal Congestion Tamsulosin HCl (Flomax) 0.4 mg PO HS [facility] Last Admin: 09/07/17 20:12 Dose: 0.4 mg Temazepam (Restoril) 15 mg PO HSPRN PRN PRN Reason: Insomnia Tramadol HCl (Ultram) 50 mg PO Q6H PRN PRN Reason: Pain Last Admin: 09/06/17 04:24 Dose: 50 mg Tramadol HCl (Ultram) 100 mg PO Q12H PRN PRN Reason: Pain Last Admin: 09/06/17 22:23 Dose: 100 mg
--- NOTE | 2017-09-08 10:34 | PRG ---
DATE OF SERVICE: 09/08/2017 Noah Macias is doing well, 2 days status post hemodialysis catheter placement, left arm primary fistula, Kathleen type, and laparoscopic peritoneal dialysis catheter placement. Hemodialysis catheter is working well for dialysis, left submedial fistula reveals good thrill and bruit. Wound looks goo d. Hand function is good. No complaints regarding his hand. ABDOMEN: Soft, nontender. Dressings over the PD catheter intact. The abdomen is soft and nontender . ASSESSMENT AND PLAN: The patient doing well status post hemodialysis access and laparoscopic PD plac ement. Would recommend leaving the dressings covering the PD catheter and not changed on this hospit alization. I have asked the correctional counselor/case manager to establish an outpatient peritoneal dialysis nurse appoint ment to change the dressings and change the connections, flush the catheter and begin education on pe ritoneal dialysis, establishing that appointment 3-7 days postoperatively. It is very important this catheter be flushed in the 3-7 day period postoperatively to maintain patency. At this point, I mayra l see him as needed this hospitalization. Please call if needed. I will see him as an outpatient in 2-3 weeks.
--- NOTE | 2017-09-08 15:09 | PRG ---
DATE OF SERVICE: 09/08/2017 SUBJECTIVE: The patient is seen and examined, seems to be reviewed okay. PHYSICAL EXAMINATION: VITAL SIGNS: Afebrile with temperature 98.1, pulse 77, respiratory 18, blood pressure 117/72. HEENT: Unremarkable with moist oral mucosa. NECK: Supple, no conjunctival injection or icterus. CARDIOVASCULAR: First and second heart sounds were heard. DIGESTIVE: Revealed a benign abdomen with positive bowel sounds. EXTREMITIES: No peripheral edema. SKIN: No new gross rash. LYMPHATICS: No peripheral lymphadenopathy. IMPRESSION: 1. End-stage renal disease, hemodialysis dependent. 2. Diabetic nephropathy. 3. Anemia of chronic kidney disease. 4. Hyperparathyroidism. PLAN: 1. The patient will continue with hemodialysis . 2. Outpatient dialysis placement, work in progress. 3. Further management to be dependent on the clinical course.
[2017-09-08] MEDS: Atorvastatin Calcium 20 MG TAB PO SCH (19:59)
[2017-09-08] MEDS: Tamsulosin HCl 0.4 MG CAP PO SCH (19:59)
[2017-09-09] MEDS: traMADol HCl 50 MG TAB PO PRN ×2 (00:35→21:17)
[2017-09-09] MEDS ORDERED: Heparin 10,000 UNITS/ 10 ML VIAL ONE (09:00)
--- NOTE | 2017-09-09 12:25 | PDOC.PN ---
- Subjective Encounter Start Date: 09/09/17 Encounter Start Time: 09:00 Patient seen and examined. No new complaints. No overnight events - Objective MAR Reviewed: Yes Vital Signs & Weight: Vital Signs (12 hours) Temp Pulse Resp BP BP Pulse Ox 09/09/17 08:00 97.5 F L 80 16 96 09/09/17 07:00 97.5 F L 80 16 153/78 H 96 09/09/17 04:00 98.2 F 79 18 112/68 96 Weight Weight 180 lb 9.6 oz I&O: 09/08/17 09/09/17 09/10/17 06:59 06:59 06:59 Intake Total 1000 Output Total 2750 34 Balance -1750 -34 Result Diagrams: 09/07/17 04:00 09/06/17 04:18 Additional Labs: Accuchecks 09/09/17 09/08/17 09/08/17 04:15 21:04 15:55 POC Glucose 140 H 209 H 207 H Phys Exam - Physical Examination Constitutional: NAD HEENT: PERRLA, moist MMs, sclera anicteric Neck: no JVD, supple Respiratory: no wheezing, no rales, no rhonchi Cardiovascular: RRR, no significant murmur, no rub Gastrointestinal: soft, non-tender, no distention, positive bowel sounds Musculoskeletal: no edema, pulses present Neurological: non-focal, normal sensation, moves all 4 limbs Psychiatric: normal affect, A&O x 3 Skin: no rash, normal turgor Dx/Plan (1) ESRD needing dialysis Code(s): N18.6 - END STAGE RENAL DISEASE; Z99.2 - DEPENDENCE ON RENAL DIALYSIS Status: Acute Comment: started on HD, dialysis access procedure done (2) Elevated CK-MB level Code(s): R74.8 - ABNORMAL LEVELS OF OTHER SERUM ENZYMES Status: Acute (3) Anemia of renal disease Code(s): D63.1 - ANEMIA IN CHRONIC KIDNEY DISEASE Status: Acute (4) Hyperkalemia Code(s): E87.5 - HYPERKALEMIA Status: Resolved (5) Metabolic acidosis Code(s): E87.2 - ACIDOSIS Status: Resolved (6) Secondary hyperparathyroidism of renal origin Code(s): N25.81 - SECONDARY HYPERPARATHYROIDISM OF RENAL ORIGIN Status: Acute (7) Diabetes type 2, controlled Code(s): E11.9 - TYPE 2 DIABETES MELLITUS WITHOUT COMPLICATIONS Status: Chronic (8) Dyslipidemia Code(s): E78.5 - HYPERLIPIDEMIA, UNSPECIFIED Status: Chronic (9) Hypertension Code(s): I10 - ESSENTIAL (PRIMARY) HYPERTENSION Status: Chronic - Plan cont current plan of care * medication reviewed as below * symptomatic treatment * continue HD as per nephrology * stable medically * await outpt HD arrangement. Review of Systems - Review of Systems ENT: negative: Ear Pain, Ear Discharge, Nose Pain, Nose Discharge, Nose Congestion, Mouth Pain, Mouth Swelling, Throat Pain, Throat Swelling, Other Respiratory: negative: Cough, Dry, Shortness of Breath, Hemoptysis, SOB with Excertion, Pleuritic Pain, Sputum, Wheezing Cardiovascular: negative: chest pain, palpitations, orthopnea, paroxysmal nocturnal dyspnea, edema, light headedness, other Gastrointestinal: negative: Nausea, Vomiting, Abdominal Pain, Diarrhea, Constipation, Melena, Hematochezia, Other Genitourinary: negative: Dysuria, Frequency, Incontinence, Hematuria, Retention , Other Musculoskeletal: negative: Neck Pain, Shoulder Pain, Arm Pain, Back Pain, Hand Pain, Leg Pain, Foot Pain, Other Skin: negative: Rash, Lesions, Abhinav, Bruising, Other - Medications/Allergies Allergies/Adverse Reactions: Allergies Allergy/AdvReac Type Severity Reaction Status Date / Time No Known Drug Allergies Allergy Verified 09/04/17 00:06 Medications: Current Medications Acetaminophen (Tylenol) 650 mg PO Q4H PRN PRN Reason: Headache/Fever or Pain Last Admin: 09/06/17 04:25 Dose: 650 mg Acetaminophen (Tylenol) 1,000 mg PO Q6H PRN PRN Reason: Moderate to Severe Pain (6-10) Al Hydroxide/Mg Hydroxide (Maalox) 15 ml PO Q4H PRN PRN Reason: Heartburn or Indigestion Amlodipine Besylate (Norvasc) 10 mg PO DAILY [facility] Last Admin: 09/08/17 07:50 Dose: Not Given Artificial Tears (Tears Naturale) 0 drop EA EYE PRN PRN PRN Reason: Dry Eyes Atorvastatin Calcium (Lipitor) 40 mg PO [facility] Last Admin: 09/08/17 19:59 Dose: 40 mg Calcitriol (Rocaltrol) 0.25 mcg PO DAILY [facility] Last Admin: 09/08/17 07:49 Dose: 0.25 mcg Calcium Acetate (Phoslo) 1,334 mg PO TID[facility] Last Admin: 09/08/17 16:11 Dose: Not Given Carvedilol (Coreg) 6.25 mg PO BID [facility] Last Admin: 09/08/17 19:59 Dose: Not Given Cefazolin Sodium (Ancef) 2 gm SLOW IVP WILLCALL [facility] Dextrose/Water (Dextrose 50%) 25 gm SLOW IVP PRN PRN PRN Reason: Hypoglycemia Epoetin Reginaldo (Procrit) 7,500 units SC Q7D [facility] Last Admin: 09/04/17 09:12 Dose: 7,500 units Famotidine (Pepcid) 20 mg PO DAILY [facility] Last Admin: 09/08/17 07:49 Dose: 20 mg Ferrous Sulfate (Feosol) 325 mg PO QAM[facility] Last Admin: 09/08/17 07:49 Dose: 325 mg Glucagon (Glucagon) 1 mg IM PRN PRN PRN Reason: Hypoglycemia Guaifenesin (Robitussin Sf) 200 mg PO Q4H PRN PRN Reason: Cough Heparin Sodium (Porcine) (Heparin) 5,000 units SC BID [facility] Last Admin: 09/08/17 19:58 Dose: 5,000 units Hydralazine HCl (Apresoline) 10 mg SLOW IVP Q4H PRN PRN Reason: Systolic BP > 180 Dextrose/Water (D5w) 1,000 mls @ 0 mls/hr IV .Q0M PRN; As Directed PRN Reason: Hypoglycemia Ferric Sodium Gluconate Complex 125 mg/ Sodium Chloride 110 mls @ 110 [facility]ls[facility] Last Admin: 09/08/17 10:21 Dose: 110 mls Insulin Human Isoph/Insulin Regular (Humulin 70/30) 5 units SC BID [facility] Last Admin: 09/08/17 20:00 Dose: 5 unit Insulin Human Regular (Humulin R) 0 units SC .MODERATE SLIDING SC PRN PRN Reason: Moderate Correctional Scale Last Admin: 09/06/17 17:02 Dose: 2 unit Insulin Human Regular (Humulin R) 0 units SC .BEDTIME SLIDING SC PRN PRN Reason: Bedtime Correctional Scale Loperamide HCl (Imodium) 2 mg PO PRN PRN PRN Reason: Diarrhea/Loose Stools Loratadine (Claritin) 10 mg PO DAILYPRN PRN PRN Reason: Sinus Symptoms Magnesium Hydroxide (Milk Of Magnesium) 30 ml PO DAILYPRN PRN PRN Reason: Constipation Mineral Oil/White Petrolatum (Eucerin Cream) 0 gm TOP BIDPRN PRN PRN Reason: Dry Skin Ondansetron HCl (Zofran Odt) 4 mg PO Q6H PRN PRN Reason: Nausea/Vomiting Ondansetron HCl (Zofran) 4 mg IVP Q6H PRN PRN Reason: Nausea/Vomiting Phenol (Chloraseptic [place] 180 Ml Bot) 0 ml PO PRN PRN PRN Reason: Sore Throat Polyethylene Glycol (Miralax) 17 gm PO DAILY [facility] Last Admin: 09/08/17 07:48 Dose: 17 gm Senna (Senokot) 2 tab PO HSPRN PRN PRN Reason: Constipation Sodium Chloride (Flush - Normal Saline) 10 ml IVF Q12HR [facility] Last Admin: 09/08/17 19:59 Dose: 10 ml Sodium Chloride (Flush - Normal Saline) 10 ml IVF PRN PRN PRN Reason: Saline Flush Sodium Chloride ([place] Nasal [place] 0.65%) 0 ml EA NARE QIDPRN PRN PRN Reason: Nasal Congestion Tamsulosin HCl (Flomax) 0.4 mg PO HS [facility] Last Admin: 09/08/17 19:59 Dose: 0.4 mg Temazepam (Restoril) 15 mg PO HSPRN PRN PRN Reason: Insomnia Tramadol HCl (Ultram) 50 mg PO Q6H PRN PRN Reason: Pain Last Admin: 09/09/17 00:35 Dose: 50 mg Tramadol HCl (Ultram) 100 mg PO Q12H PRN PRN Reason: Pain Last Admin: 09/06/17 22:23 Dose: 100 mg
[2017-09-09] MEDS: Polyethylene Glycol 3350 17 GM Packet PO SCH (12:50)
[2017-09-09] MEDS: Amlodipine 10 MG TAB PO SCH (12:51)
[2017-09-09] MEDS: Ferrous Sulfate 325 MG TAB PO SCH (12:51)
[2017-09-09] MEDS: Carvedilol 6.25 MG TAB PO SCH ×2 (12:52→21:04)
[2017-09-09] MEDS: Calcium Acetate 667 MG CAP PO SCH ×3 (12:52→17:17)
[2017-09-09] MEDS: Calcitriol 0.25 MCG CAP PO SCH (12:53)
[2017-09-09] MEDS: Famotidine 20 MG TAB PO SCH (12:53)
[2017-09-09] MEDS: Heparin 5,000 UNITS/ML VIAL SC SCH ×2 (12:54→21:08)
[2017-09-09] MEDS: Sodium Ferric Gluconate 125 MG in Sodium Chloride 0.9% 100 ML IVPB SCH (12:55)
[2017-09-09] MEDS: Insulin NPH/Reg Insulin Hm 300 UNITS/3 ML VIAL SC SCH ×2 (13:03→21:09)
--- NOTE | 2017-09-09 16:42 | PRG ---
DATE OF SERVICE: 09/09/2017 SUBJECTIVE: The patient seen and examined and noted with the following. OBJECTIVE: VITAL SIGNS: Afebrile with temperature 97.9, pulse 78, blood pressure 142/72, respiratory rate of 20 and O2 sat 98%. HEENT: Unremarkable. CARDIOVASCULAR SYSTEM: First and second heart sounds were heard. RESPIRATORY SYSTEM: Clear to auscultation. DIGESTIVE SYSTEM: Revealed a benign abdomen with positive bowel sounds. EXTREMITIES: No peripheral edema. SKIN: No new gross rash. LYMPHATICS: No peripheral lymphadenopathy. IMPRESSION: 1. End-stage renal disease, hemodialysis dependent. 2. Anemia of chronic kidney disease. 3. Status post peritoneal dialysis catheter placement, AV fistula and tunneled catheter. PLAN: 1. county manager working on outpatient dialysis unit placement in [place]. 2. Once the patient is accepted at the outpatient dialysis, then the patient will be good for discha rge.
[2017-09-09] MEDS: Tamsulosin HCl 0.4 MG CAP PO SCH (21:08)
[2017-09-09] MEDS: Atorvastatin Calcium 20 MG TAB PO SCH (21:08)
[2017-09-10 08:16] VITALS: BP 123/64; TEMP 98.1
[2017-09-10] MEDS: Calcium Acetate 667 MG CAP PO SCH ×2 (08:55→11:55)
[2017-09-10] MEDS: Amlodipine 10 MG TAB PO SCH (08:55)
[2017-09-10] MEDS: Polyethylene Glycol 3350 17 GM Packet PO SCH (08:56)
[2017-09-10] MEDS: Famotidine 20 MG TAB PO SCH (08:56)
[2017-09-10] MEDS: Calcitriol 0.25 MCG CAP PO SCH (08:57)
[2017-09-10] MEDS: Insulin NPH/Reg Insulin Hm 300 UNITS/3 ML VIAL SC SCH (08:57)
[2017-09-10] MEDS: Ferrous Sulfate 325 MG TAB PO SCH (08:57)
[2017-09-10] MEDS: Heparin 5,000 UNITS/ML VIAL SC SCH (08:57)
[2017-09-10] MEDS: Carvedilol 6.25 MG TAB PO SCH (08:57)
[2017-09-10] MEDS: Sodium Ferric Gluconate 125 MG in Sodium Chloride 0.9% 100 ML IVPB SCH (09:03)
--- NOTE | 2017-09-10 11:14 | DIS ---
DATE OF ADMISSION: 09/03/2017 DATE OF DISCHARGE: 09/10/2017 PRIMARY CARE PHYSICIAN: Gurjit Suarez D.O. DISCHARGE DISPOSITION: Home. PRIMARY DISCHARGE DIAGNOSES: New end-stage renal disease, started hemodialysis; metabolic acidosis; hyperkalemia; anemia of renal disease; secondary hyperparathyroidism of renal origin; all related wit h problem #1. SECONDARY DISCHARGE DIAGNOSES: 1. Hypertension. 2. Diabetes type 2. 3. Dyslipidemia. PRIMARY PROCEDURE/OPERATION: Dialysis catheter placement in his left groin, subsequently tunneled he modialysis catheter; AV fistula and peritoneal dialysis catheter placement by Dr. Horan. RADIOLOGICAL INVESTIGATION: Marking ultrasound and chest x-ray. SIGNIFICANT LABORATORY: Hemoglobin 8.5. Creatinine 6.78. Urinalysis consistent with nephrotic rang e of proteinuria. Hepatitis profile negative. DISCHARGE MEDICATIONS: Amlodipine 10 mg p.o. daily, Lipitor 40 mg p.o. at bedtime, calcitriol 0.25 m cg p.o. daily, PhosLo 1334 mg p.o. t.i.d., Coreg 6.25 mg p.o. b.i.d., Pepcid 20 mg p.o. daily, ferrou s sulfate 325 mg p.o. daily, NPH insulin 5 units subcutaneously b.i.d., MiraLax 17 grams p.o. daily, Flomax 0.4 mg p.o. at bedtime, tramadol 50 mg p.o. q.6 hourly p.r.n., aspirin 81 mg p.o. daily. CONTRAINDICATIONS: None. CODE STATUS: FULL CODE. INPATIENT CONSULTANTS: Dr. Horan was consulted for dialysis access catheter placement. Dr. Aj bright was his urology nurse while in hospital. TEST RESULTS PENDING ON DISCHARGE: None. ALLERGIES: No known drug allergy. DISCHARGE PLAN: Post hospital, the patient will follow up with Dr. Trevino as instructed. The gary ladd will follow up with Dr. Horan in 2-3 weeks. The patient will continue his regular hemodialysi s as per Nephrology as per schedule. HOSPITAL COURSE: A 52-year-old male who was admitted by Dr. Jose Gale, please see his H&P for furt her detail. The patient was admitted on 09/04/2017. The patient was mainly admitted for uremia symp toms. He was having shortness of breath. He was having lower extremity edema. He was having poor a ppetite, itching. He was suffering from uremia. His creatinine was significantly elevated. During this admission, he approached ESRD. He has anemia of renal disease which was treated with Procrit an d iron infusion while in hospital. He had secondary hyperparathyroidism of renal origin which requir ed Griffin. Initially when he came in to the hospital, he was having metabolic acidosis and hyperkale mahin due to end-stage renal disease and that was improved by the time of discharge with the dialysis. His urinalysis consistent with nephrotic range of proteinuria from diabetes and hypertension. While in hospital, the patient had dialysis access by Dr. Horan. He required several dialysis acces s including groin catheter, tunneled catheter, PD catheter as well as AV fistula. With help of case liner, we arranged hemodialysis as an outpatient basis. The patient's primary urology nurse is Dr. Trevino and he is okay with discharging this patient home. As long as we have outpatient dialysis arranged today, we will consider discharging him home. The patient is seen and examined at bedside today. Plan of care discussed with the patient and his w milad. All review of system reviewed with him and negative. His examination is unremarkable. All new medication prescription sent to his pharmacy.
--- NOTE | 2017-09-10 12:01 | PDOC.PN ---
- Subjective Encounter Start Date: 09/10/17 Encounter Start Time: 11:58 Patient seen and examined. No new complaints. No overnight events - Objective MAR Reviewed: Yes Vital Signs & Weight: Vital Signs (12 hours) Temp Pulse Resp BP BP Pulse Ox 09/10/17 08:16 98.1 F 68 20 123/64 94 L 09/10/17 08:00 98.1 F 68 20 09/10/17 07:31 98.4 F 68 20 105/59 L 93 L 09/10/17 04:00 98.4 F 76 18 92/53 L 97 Weight Weight 180 lb 9.6 oz I&O: 09/09/17 09/10/17 09/11/17 06:59 06:59 06:59 Output Total 34 Balance -34 Result Diagrams: 09/07/17 04:00 09/06/17 04:18 Additional Labs: Accuchecks 09/10/17 09/10/17 09/09/17 10:58 04:07 21:15 POC Glucose 112 H 148 H 219 H 09/09/17 09/09/17 17:05 13:02 POC Glucose 219 H 117 H Phys Exam - Physical Examination Constitutional: NAD HEENT: PERRLA, moist MMs, sclera anicteric Neck: no JVD, supple Respiratory: no wheezing, no rales, no rhonchi Cardiovascular: RRR, no significant murmur, no rub Gastrointestinal: soft, non-tender, no distention, positive bowel sounds Musculoskeletal: no edema, pulses present Neurological: non-focal, normal sensation, moves all 4 limbs Lymphatic: no nodes Psychiatric: normal affect, A&O x 3 Skin: no rash, normal turgor Dx/Plan (1) ESRD needing dialysis Code(s): N18.6 - END STAGE RENAL DISEASE; Z99.2 - DEPENDENCE ON RENAL DIALYSIS Status: Acute Comment: started on HD, dialysis access procedure done (2) Elevated CK-MB level Code(s): R74.8 - ABNORMAL LEVELS OF OTHER SERUM ENZYMES Status: Acute (3) Anemia of renal disease Code(s): D63.1 - ANEMIA IN CHRONIC KIDNEY DISEASE Status: Acute (4) Hyperkalemia Code(s): E87.5 - HYPERKALEMIA Status: Resolved (5) Metabolic acidosis Code(s): E87.2 - ACIDOSIS Status: Resolved (6) Secondary hyperparathyroidism of renal origin Code(s): N25.81 - SECONDARY HYPERPARATHYROIDISM OF RENAL ORIGIN Status: Acute (7) Diabetes type 2, controlled Code(s): E11.9 - TYPE 2 DIABETES MELLITUS WITHOUT COMPLICATIONS Status: Chronic (8) Dyslipidemia Code(s): E78.5 - HYPERLIPIDEMIA, UNSPECIFIED Status: Chronic (9) Hypertension Code(s): I10 - ESSENTIAL (PRIMARY) HYPERTENSION Status: Chronic - Plan cont current plan of care, plan discussed w/ family, medical social worker * medication reviewed as below * symptomatic treatment * see discharge summery * await outpt HD placement. Review of Systems - Review of Systems Eyes: negative: Pain, Vision Change, Conjunctivae Inflammation, Eyelid Inflammation, Redness, Other ENT: negative: Ear Pain, Ear Discharge, Nose Pain, Nose Discharge, Nose Congestion, Mouth Pain, Mouth Swelling, Throat Pain, Throat Swelling, Other Respiratory: negative: Cough, Dry, Shortness of Breath, Hemoptysis, SOB with Excertion, Pleuritic Pain, Sputum, Wheezing Cardiovascular: negative: chest pain, palpitations, orthopnea, paroxysmal nocturnal dyspnea, edema, light headedness, other Gastrointestinal: negative: Nausea, Vomiting, Abdominal Pain, Diarrhea, Constipation, Melena, Hematochezia, Other Genitourinary: negative: Dysuria, Frequency, Incontinence, Hematuria, Retention , Other Musculoskeletal: negative: Neck Pain, Shoulder Pain, Arm Pain, Back Pain, Hand Pain, Leg Pain, Foot Pain, Other Skin: negative: Rash, Lesions, Abhinav, Bruising, Other - Medications/Allergies Allergies/Adverse Reactions: Allergies Allergy/AdvReac Type Severity Reaction Status Date / Time No Known Drug Allergies Allergy Verified 09/04/17 00:06 Medications: Current Medications Acetaminophen (Tylenol) 650 mg PO Q4H PRN PRN Reason: Headache/Fever or Pain Last Admin: 09/06/17 04:25 Dose: 650 mg Acetaminophen (Tylenol) 1,000 mg PO Q6H PRN PRN Reason: Moderate to Severe Pain (6-10) Al Hydroxide/Mg Hydroxide (Maalox) 15 ml PO Q4H PRN PRN Reason: Heartburn or Indigestion Amlodipine Besylate (Norvasc) 10 mg PO DAILY JAZZY Last Admin: 09/10/17 08:55 Dose: 10 mg Artificial Tears (Tears Naturale) 0 drop EA EYE PRN PRN PRN Reason: Dry Eyes Atorvastatin Calcium (Lipitor) 40 mg PO HS [facility] Last Admin: 09/09/17 21:08 Dose: 40 mg Calcitriol (Rocaltrol) 0.25 mcg PO DAILY [facility] Last Admin: 09/10/17 08:57 Dose: 0.25 mcg Calcium Acetate (Phoslo) 1,334 mg PO TID[facility] Last Admin: 09/10/17 11:55 Dose: 1,334 mg Carvedilol (Coreg) 6.25 mg PO BID [facility] Last Admin: 09/10/17 08:57 Dose: 6.25 mg Cefazolin Sodium (Ancef) 2 gm SLOW IVP WILLCALL [facility] Dextrose/Water (Dextrose 50%) 25 gm SLOW IVP PRN PRN PRN Reason: Hypoglycemia Epoetin Reginaldo (Procrit) 7,500 units SC Q7D [facility] Last Admin: 09/04/17 09:12 Dose: 7,500 units Famotidine (Pepcid) 20 mg PO DAILY [facility] Last Admin: 09/10/17 08:56 Dose: 20 mg Ferrous Sulfate (Feosol) 325 mg PO QAM[facility] Last Admin: 09/10/17 08:57 Dose: 325 mg Glucagon (Glucagon) 1 mg IM PRN PRN PRN Reason: Hypoglycemia Guaifenesin (Robitussin Sf) 200 mg PO Q4H PRN PRN Reason: Cough Heparin Sodium (Porcine) (Heparin) 5,000 units SC BID [facility] Last Admin: 09/10/17 08:57 Dose: 5,000 units Hydralazine HCl (Apresoline) 10 mg SLOW IVP Q4H PRN PRN Reason: Systolic BP > 180 Dextrose/Water (D5w) 1,000 mls @ 0 mls/hr IV .Q0M PRN; As Directed PRN Reason: Hypoglycemia Ferric Sodium Gluconate Complex 125 mg/ Sodium Chloride 110 mls @ 110 mls/hr [facility] Last Admin: 09/10/17 09:03 Dose: 110 mls Insulin Human Isoph/Insulin Regular (Humulin 70/30) 5 units SC BID [facility] Last Admin: 09/10/17 08:57 Dose: 5 unit Insulin Human Regular (Humulin R) 0 units SC .MODERATE SLIDING SC PRN PRN Reason: Moderate Correctional Scale Last Admin: 09/06/17 17:02 Dose: 2 unit Insulin Human Regular (Humulin R) 0 units SC .BEDTIME SLIDING SC PRN PRN Reason: Bedtime Correctional Scale Loperamide HCl (Imodium) 2 mg PO PRN PRN PRN Reason: Diarrhea/Loose Stools Loratadine (Claritin) 10 mg PO DAILYPRN PRN PRN Reason: Sinus Symptoms Magnesium Hydroxide (Milk Of Magnesium) 30 ml PO DAILYPRN PRN PRN Reason: Constipation Mineral Oil/White Petrolatum (Eucerin Cream) 0 gm TOP BIDPRN PRN PRN Reason: Dry Skin Ondansetron HCl (Zofran Odt) 4 mg PO Q6H PRN PRN Reason: Nausea/Vomiting Ondansetron HCl (Zofran) 4 mg IVP Q6H PRN PRN Reason: Nausea/Vomiting Phenol (Chloraseptic [place] 180 Ml Bot) 0 ml PO PRN PRN PRN Reason: Sore Throat Polyethylene Glycol (Miralax) 17 gm PO DAILY JAZZY Last Admin: 09/10/17 08:56 Dose: 17 gm Senna (Senokot) 2 tab PO HSPRN PRN PRN Reason: Constipation Sodium Chloride (Flush - Normal Saline) 10 ml IVF Q12HR JAZZY Last Admin: 09/10/17 09:03 Dose: 10 ml Sodium Chloride (Flush - Normal Saline) 10 ml IVF PRN PRN PRN Reason: Saline Flush Sodium Chloride ([place]ake Nasal [place] 0.65%) 0 ml EA NARE QIDPRN PRN PRN Reason: Nasal Congestion Tamsulosin HCl (Flomax) 0.4 mg PO HS JAZZY Last Admin: 09/09/17 21:08 Dose: 0.4 mg Temazepam (Restoril) 15 mg PO HSPRN PRN PRN Reason: Insomnia Tramadol HCl (Ultram) 50 mg PO Q6H PRN PRN Reason: Pain Last Admin: 09/09/17 21:17 Dose: 50 mg Tramadol HCl (Ultram) 100 mg PO Q12H PRN PRN Reason: Pain Last Admin: 09/06/17 22:23 Dose: 100 mg
== END 2017-09-10 15:57 | disposition home or self-care (01) | DRG 673 ==
LOC: ERS 21:37 → 2SW 22:20 → T4-A 09-06 13:39
PROVIDERS: ADMIT Family Medicine; ATTEND Family Medicine
PROC: 06HN33Z Insertion of Infusion Device into Left Femoral Vein, Percutaneous Approach (ICD-10-PCS; 2017-09-03)
PROC: 30233N1 Transfusion of Nonautologous Red Blood Cells into Peripheral Vein, Percutaneous Approach (ICD-10-PCS; 2017-09-04)
PROC: 5A1D70Z Performance of Urinary Filtration, Intermittent, Less than 6 Hours Per Day (ICD-10-PCS; 2017-09-04)
PROC: 031C0ZF Bypass Left Radial Artery to Lower Arm Vein, Open Approach (ICD-10-PCS; principal; 2017-09-06)
PROC: 0WHG43Z Insertion of Infusion Device into Peritoneal Cavity, Percutaneous Endoscopic Approach (ICD-10-PCS; 2017-09-06)
PROC: 0DQU4ZZ Repair Omentum, Percutaneous Endoscopic Approach (ICD-10-PCS; 2017-09-06)
PROC: 0JH63XZ Insertion of Tunneled Vascular Access Device into Chest Subcutaneous Tissue and Fascia, Percutaneous Approach (ICD-10-PCS; 2017-09-06)
PROC: 02HV33Z Insertion of Infusion Device into Superior Vena Cava, Percutaneous Approach (ICD-10-PCS; 2017-09-06)
PROC: B548ZZA Ultrasonography of Superior Vena Cava, Guidance (ICD-10-PCS; 2017-09-06)
DX: E87.5 Hyperkalemia; E11.22 Type 2 diabetes mellitus with diabetic chronic kidney disease; E11.319 Type 2 diabetes mellitus with unspecified diabetic retinopathy without macular edema; I12.0 Hypertensive chronic kidney disease with stage 5 chronic kidney disease or end stage renal disease; Z99.2 Dependence on renal dialysis; N18.6 End stage renal disease; E87.2 Acidosis; N25.81 Secondary hyperparathyroidism of renal origin; E78.5 Hyperlipidemia, unspecified; E11.21 Type 2 diabetes mellitus with diabetic nephropathy; D63.1 Anemia in chronic kidney disease; Z79.4 Long term (current) use of insulin
CPT/HCPCS: 36415; 36416; 36430; 36556; 71045; 80069; 81003; 81015; 82550; 82553; 82570; 82728; 83540; 83550; 83970; 84156; 84300; 84484; 85025; 86580; 86704; 86706; 86803; 86850; 86900; 86901; 87340; 90935; 93005; 93010; 93970; 96374; A4216; C1752; C1769; G0257; G0365; J0670; J1610; J1644; J1815; J2001; J2060; J2405; J2704; J2720; J2916; J3010; J7050; P9016; Q4081; Q9961

== ENCOUNTER 2018-08-05 19:01 | Emergency (ER) | payer MEDICARE, OTHER ==
[2018-08-05 19:57] LABS: #Basophils 0.1 thou/uL (0.0-0.2); #Eosinphils 0.1 thou/uL (0.0-0.7); #Lymphocytes 1.6 thou/uL (1.20-3.40); #Monocytes 0.6 thou/uL (0.11-0.59); #Neutrophils 3.1 thou/uL (1.40-6.50); %Basophils 1.2 % (0.0-1.0); %Eosinophils 2.3 % (0.0-10.0); %Lymphocytes 28.8 % (21.0-51.0); %Monocytes 11.6 % (0.0-10.0); %Neutrophils 56.2 % (42.0-75.0); Hemoglobin 9.5 g/dL (14.0-18.0); Mean Corpuscular HGB CONC 31.7 g/dL (32.0-36.0); Mean Corpuscular Hemoglobin 23.5 pg (27.0-31.0); Mean Corpuscular Volume 74.2 fL (78.0-98.0); Platelet Count 211 thou/uL (130-400); RBC Distribution Width 17.2 % (11.5-14.5); Red Blood Cell (RBC) Count 4.05 mill/uL (4.70-6.10); White Blood Cell (WBC) Count 5.4 thou/uL (4.8-10.8)
--- NOTE | 2018-08-05 19:58 | RAD ---
TWO VIEWS CHEST: 08/05/18 HISTORY: Cough. Two views chest is obtained. Cardiomegaly seen. There is some areas of patchy density in the left lower lobe concerning for area o f left lower lobe pneumonia. Followup films to resolution recommended. IMPRESSION: 1. Cardiomegaly. 2. Areas of subtle patchy density in the left lower lobe concerning for areas of left lower lobe pneumonia. POS: [facility]
[2018-08-05 20:53] LABS: Albumin 3.3 g/dL (3.5-5.0)
[2018-08-05 20:54] LABS: Chloride 99 mmol/L (98-107); Potassium 5.5 mmol/L (3.5-5.1); Sodium 141 mmol/L (136-145)
[2018-08-05 20:55] LABS: Calcium 8.9 mg/dL (7.8-10.44); Glucose 225 mg/dL (70-105)
[2018-08-05 20:56] LABS: Globulin 3.9 g/dL (2.4-3.5); Protein, Total 7.2 g/dL (6.0-8.3)
[2018-08-05 20:57] LABS: Anion Gap 21 mmol/L (10-20); Bilirubin, Total 0.6 mg/dL (0.2-1.2); Carbon Dioxide 27 mmol/L (22-29)
[2018-08-05 20:58] LABS: Alkaline Phosphatase 85 U/L (40-150)
[2018-08-05 20:59] LABS: Calc. Creatinine Clearance 0 mL/min (70-130); Estimated GFR-MDRD 3
[2018-08-05 21:00] LABS: BUN (Urea Nitrogen) 91 mg/dL (8.4-25.7)
[2018-08-05 21:01] LABS: ALT (SGPT) 56 U/L (8-55); AST (SGOT) 34 U/L (5-34)
[2018-08-05 21:35] LABS: Bilirubin Negative (Negative); Blood, Urine Moderate (Negative); Clarity CLEAR (Clear); Glucose, Urine (Dipstick) 250 mg/dL (Negative); Leukocyte Negative (Negative); Nitrite Negative (Negative); Protein, Urine (Dipstick) > or equal to 300 mg/dL (Neg-Trace); Specific Gravity, Urine 1.018 (1.002-1.036); Urobilinogen 0.2 mg/dL (0.2-1.0); pH, Urine 6.5 (5.0-9.0)
[2018-08-05 21:36] LABS: Bacteria/HPF None Seen HPF (None Seen); Hyaline Casts/LPF 4-6 HYALINE CAST LPF (0-3 Hyaline); Pathc Cast-AUWi Flag 1.01 (0-2.49)
== END 2018-08-06 00:45 | disposition home or self-care (01) ==
LOC: ERS 19:01
DX: R42 Dizziness and giddiness (principal); I10 Essential (primary) hypertension; E11.9 Type 2 diabetes mellitus without complications
CPT/HCPCS: 36415; 71046; 80053; 81003; 81015; 85025

== ENCOUNTER 2018-10-01 15:15 | Observation (INO) | payer OTHER, MEDICARE ==
[2018-10-01 15:45] LABS: #Basophils 0.1 thou/uL (0.0-0.2); #Eosinphils 0.3 thou/uL (0.0-0.7); #Lymphocytes 2.1 thou/uL (1.20-3.40); #Monocytes 0.8 thou/uL (0.11-0.59); #Neutrophils 3.8 thou/uL (1.40-6.50); %Basophils 1.8 % (0.0-1.0); %Eosinophils 4.3 % (0.0-10.0); %Lymphocytes 30.1 % (21.0-51.0); %Monocytes 10.5 % (0.0-10.0); %Neutrophils 53.4 % (42.0-75.0); Hemoglobin 9.9 g/dL (14.0-18.0); Mean Corpuscular HGB CONC 32.6 g/dL (32.0-36.0); Mean Corpuscular Hemoglobin 24.5 pg (27.0-31.0); Mean Corpuscular Volume 75.1 fL (78.0-98.0); Mean Platelet Volume 9.3 fL (7.4-10.4); Platelet Count 178 thou/uL (130-400); RBC Distribution Width 16.3 % (11.5-14.5); Red Blood Cell (RBC) Count 4.03 mill/uL (4.70-6.10); White Blood Cell (WBC) Count 7.1 thou/uL (4.8-10.8)
[2018-10-01 16:10] LABS: ALT (SGPT) 47 U/L (8-55); AST (SGOT) 24 U/L (5-34); Albumin 3.6 g/dL (3.5-5.0); Alkaline Phosphatase 71 U/L (40-150); Anion Gap 20 mmol/L (10-20); BUN (Urea Nitrogen) 95 mg/dL (8.4-25.7); Bilirubin, Total 0.6 mg/dL (0.2-1.2); Calc. Creatinine Clearance 0 mL/min (70-130); Calcium 9.4 mg/dL (7.8-10.44); Carbon Dioxide 26 mmol/L (22-29); Chloride 97 mmol/L (98-107); Estimated GFR-MDRD 3; Globulin 3.1 g/dL (2.4-3.5); Glucose 166 mg/dL (70-105); Potassium 4.6 mmol/L (3.5-5.1); Protein, Total 6.7 g/dL (6.0-8.3); Sodium 138 mmol/L (136-145)
[2018-10-01 16:29] LABS: CKMB 14.1 ng/mL (0-6.6)
--- NOTE | 2018-10-01 18:45 | RAD ---
PORTABLE CHEST ONE VIEW: 10/01/18 at 6:26 p.m. HISTORY: Syncope. The heart is enlarged. The aorta is tortuous. The lungs are expanded without focal areas of consolida tion, pneumothoraces, gurvinder pulmonary edema or pleural effusions. The previously noted right sided dialysis catheter on the exam of 09/06/17 has been removed in the inte rim. IMPRESSION: No acute process. POS: [facility]
[2018-10-01] MEDS ORDERED: Aspirin Chewable 81 MG TAB ONE (19:20)
[2018-10-01 20:25] LABS: Bilirubin Negative (Negative); Blood, Urine Moderate (Negative); Clarity CLEAR (Clear); Glucose, Urine (Dipstick) 500 mg/dL (Negative); Leukocyte Negative (Negative); Nitrite Negative (Negative); Protein, Urine (Dipstick) > or equal to 300 mg/dL (Neg-Trace); Specific Gravity, Urine 1.017 (1.002-1.036); Urobilinogen 0.2 mg/dL (0.2-1.0)
[2018-10-01 20:28] LABS: Bacteria/HPF None Seen HPF (None Seen); Hyaline Casts/LPF 4-6 HYALINE CAST LPF (0-3 Hyaline); Pathc Cast-AUWi Flag 0.68 (0-2.49)
[2018-10-01 20:29] LABS: Troponin I 0.106 ng/mL (< 0.028)
[2018-10-01] MEDS ORDERED: Ondansetron ODT 4 MG TAB SL PRN (22:04)
[2018-10-01] MEDS ORDERED: Ondansetron PF 4 MG/2 ML Vial IVP PRN (22:04)
[2018-10-01] MEDS ORDERED: Acetaminophen 325 MG TAB PO PRN (22:48)
[2018-10-01] MEDS ORDERED: Calcium Acetate 667 MG CAP PO PRN (23:40)
[2018-10-01 23:42] LABS: Troponin I 0.101 ng/mL (< 0.028)
[2018-10-02 00:24] VITALS: BMI 28.8
[2018-10-02] MEDS ORDERED: Polyethylene Glycol 3350 17 GM Packet PO PRN (01:11)
[2018-10-02] MEDS ORDERED: Dextrose 5% in Water 1,000 ML IV PRN (01:13)
[2018-10-02] MEDS ORDERED: Dextrose 50% Abboject 50 ML SYRINGE SLOW IVP PRN (01:13)
--- NOTE | 2018-10-02 02:14 | HP ---
PRIMARY CARE DOCTOR: Out of [facility] physician. CODE STATUS: Full code. TIME OF EVALUATION: 8 p.m. CHIEF COMPLAINT: Weakness and feeling lightheaded. HISTORY OF PRESENT ILLNESS: This is a 53-year-old male patient with past medical history of end-stage renal disease, on peritoneal dialysis. The patient came to the hospital after having an episode of near syncope with no clear triggers. No alleviating factors. He reported to have been associated to the dialysis. The symptoms started suddenly, on and off. Symptoms were severe. REVIEW OF SYSTEMS: CONSTITUTIONAL: No fever, chills or generalized weakness. RESPIRATORY: No cough, sputum production or shortness of breath. CARDIOVASCULAR: No chest pain or palpitation. GASTROINTESTINAL: No nausea, no vomiting, diarrhea or abdominal pain. CLINICAL ABSTRACTOR: The patient feels near-syncope episodes. No headache. He felt lightheaded during those episodes. GENITOURINARY: No burning on urination. EXTREMITIES: No leg swelling. All other systems were reviewed and negative except for the findings mentioned above. PAST MEDICAL HISTORY: Positive for diabetes, end-stage renal disease, on peritoneal dialysis, hypertension, cough. PAST SURGICAL HISTORY: Left eye surgery due to retinal detachment, right eye surgery for eye hemorrhage. PSYCHIATRIC HISTORY: No previous psych history. FAMILY HISTORY: Reviewed and non contributory for current presentation. SOCIAL HISTORY: No alcohol, no drugs, no smoking history. ALLERGIES: NO KNOWN DRUG ALLERGIES. REPORTED MEDICATIONS: 1. Novolin 70/30. 2. Atorvastatin. 3. Carvedilol. 4. Amlodipine. 5. Calcium acetate. 6. Famotidine. 7. Aspirin. 8. Bumetanide. 9. Iron. 10. Vitamin D3. PHYSICAL EXAMINATION: VITAL SIGNS: On presentation blood pressure 183/94 with heart rate 77, respiratory rate was 18, temperature 98, pain was 0/10, oxygen saturation was 98. GENERAL APPEARANCE: The patient is alert, oriented, with generalized weakness, not in acute distress. HEENT: Eyes, normal conjunctivae. Moist oral mucosa. Anicteric. No JVD. RESPIRATORY: Bilateral air entry. No rales. No wheezes. Symmetric expansion. CARDIOVASCULAR: Normal rate, regular rhythm. No murmurs. No gallop. No edema. ABDOMEN: Soft. Normal bowel sounds. Peritoneal catheter for dialysis needs to be functioning. MUSCULOSKELETAL: Baseline range of motion and strength. No tenderness. SKIN: Warm, intact. No pallor. No rash. No redness. Peripheral pulses are present. Capillary refill seems to be intact. NEUROLOGIC: No evidence of any new focal weakness. Baseline speech. Cranial nerves seems to be intact. PSYCHIATRIC: The patient is in good mood. No anxiety. Optimal judgment. IMAGING: EKG was reviewed. The patient has normal sinus rhythm at the rate of 77, VT 146, QRS 168, QT corrected 516, RBBB. Chest x-ray was reviewed, the patient has no acute process. LABORATORY DATA: Reviewed, the patient has white count of 7.1, hemoglobin 9.9, MCV 75.1, platelet count 178, neutrophils 53.4. Chemistry: Sodium 138, potassium 4.6, chloride 97, carbon dioxide 26, anion gap 20, BUN 95, creatinine 16.05, GFR 3, glucose 166, calcium 9.4, total bilirubin 0.6, AST 24, ALT 47, alkaline phosphatase 71. Troponin 0.1, second one 0.106, third one 0.101. Serum total protein 6.7, lipase 63. Urine was reviewed. The patient has some glucosuria, white count 7- 10. ASSESSMENT AND PLAN: The patient will be placed in the hospital with following medical problems: 1. Near-syncope, unclear etiology. We will do echo, we will do carotid Doppler. 2. Normocytic anemia. Hemoglobin 9.9. We will monitor, no need for any acute intervention at this point. 3. End-stage renal disease on peritoneal dialysis. As per patient, he has been getting his dialysis properly. No abdominal pain. Nephrology has been consulted. We will follow recommendations. 4. Uncontrolled diabetes, with blood sugar of [address] We will place the patient on sliding scale for optimal control. We will adjust diet. 5. Non-ST elevation myocardial infarction, type 2, likely secondary to underlying syncope episode, als he has kidney failure, unclear if the patient has any cardiac etiology causing the symptoms. We will be able to know after initial workup, troponin trending. It is not significantly high for non-ST elevation myocardial infarction, type 1. We will treat the underlying condition. 6. Hypertensive urgency. The patient has systolic blood pressure of 183/94, reconcile home medications, adjust as needed. The patient receiving peritoneal dialysis as scheduled. Job ID: [id number] [facility]
[2018-10-02 05:33] LABS: #Basophils 0.1 thou/uL (0.0-0.2); #Eosinphils 0.3 thou/uL (0.0-0.7); #Lymphocytes 2.3 thou/uL (1.20-3.40); #Monocytes 0.7 thou/uL (0.11-0.59); #Neutrophils 3.8 thou/uL (1.40-6.50); %Eosinophils 3.9 % (0.0-10.0); %Monocytes 9.7 % (0.0-10.0); %Neutrophils 52.5 % (42.0-75.0); Hemoglobin 8.9 g/dL (14.0-18.0); Mean Corpuscular HGB CONC 31.9 g/dL (32.0-36.0); Mean Corpuscular Hemoglobin 24.2 pg (27.0-31.0); Mean Corpuscular Volume 75.9 fL (78.0-98.0); Mean Platelet Volume 9.5 fL (7.4-10.4); Platelet Count 186 thou/uL (130-400); RBC Distribution Width 16.4 % (11.5-14.5); Red Blood Cell (RBC) Count 3.67 mill/uL (4.70-6.10); White Blood Cell (WBC) Count 7.3 thou/uL (4.8-10.8)
[2018-10-02 05:54] LABS: Anion Gap 19 mmol/L (10-20); BUN (Urea Nitrogen) 94 mg/dL (8.4-25.7); Calc. Creatinine Clearance 6 mL/min (70-130); Calcium 9.1 mg/dL (7.8-10.44); Carbon Dioxide 25 mmol/L (22-29); Chloride 98 mmol/L (98-107); Estimated GFR-MDRD 3; Glucose 235 mg/dL (70-105); Potassium 4.7 mmol/L (3.5-5.1); Sodium 137 mmol/L (136-145)
[2018-10-02] MEDS: HumaLOG 300 UNITS/3 ML VIAL SC PRN ×3 (06:28→17:03)
[2018-10-02] MEDS ORDERED: Calcium Acetate 667 MG CAP PO SCH (08:00)
[2018-10-02] MEDS: Calcium Acetate 667 MG CAP PO SCH ×3 (08:22→16:25)
[2018-10-02] MEDS: Aspirin 81 mg Enteric Coated Tablet PO SCH (08:23)
[2018-10-02] MEDS: Ferrous Sulfate 325 MG TAB PO SCH (08:23)
[2018-10-02] MEDS: Bumetanide 1 MG TAB PO SCH ×2 (08:23→20:47)
[2018-10-02] MEDS: Famotidine 20 MG TAB PO SCH (08:23)
[2018-10-02] MEDS: Carvedilol 6.25 MG TAB PO SCH ×2 (08:23→16:24)
[2018-10-02] MEDS: Amlodipine 10 MG TAB PO SCH (08:24)
[2018-10-02] MEDS: Heparin 5,000 UNITS/ML VIAL SC SCH ×3 (08:24→20:48)
[2018-10-02 12:00] LABS: BF Color Colorless; BF RBC Count - Manual 0 /cumm; BF WBC/Nonhematics Ct. - Manua 1 /cumm; Body Fluid Source Dialysate Fluid; Clarity Clear (Clear)
--- NOTE | 2018-10-02 14:42 | ULT ---
CAROTID DOPPLER: Ultrasound and Doppler studies performed on the extracranial carotid arteries. Color Doppler, spectra l analysis, and velocity recordings obtained. INDICATION: Syncope FINDINGS: Ultrasound shows no evidence of significant intimal thickening or echogenic plaque. Velocity recordings in bilateral Common Carotid and internal Carotid arteries are within normal range . No evidence of hemodynamically significant stenosis. Vertebral arteries show antegrade flow. IMPRESSION: No evidence of significant stenosis
--- NOTE | 2018-10-02 18:41 | PRG ---
DATE OF SERVICE: 10/02/2018 SUBJECTIVE: is a 53-year-old male with past medical history significant for end-stage renal disease, currently on peritoneal dialysis, hypertension, after suffering from a near syncopal event that happened at home after peritoneal dialysis. The patient reported that he felt lightheaded and a strange sensation that radiated up into his head. He just states that he did not feel right, that some thing was wrong. The patient today feels improved. He has no chest pain, shortness of breath, or presyncope. He is tolerating peritoneal dialysis. OBJECTIVE: VITAL SIGNS: Blood pressure 168/85, pulse is 77, O2 saturation is 98% on room air, temperature afebrile 97.9. GENERAL: The patient is a male, who appears his stated age, in no acute distress. HEENT: Head is atraumatic and normocephalic. Mucous membranes are moist. NECK: No carotid bruits. No JVD. Trachea is midline. CARDIOVASCULAR: S1 and S2. Regular rate and rhythm. No appreciable murmurs, rubs, or gallops. LUNGS: Regular respiratory rate and pattern, overall clear. ABDOMEN: Positive bowel sounds. Soft. EXTREMITIES: No appreciable edema. SKIN: Warm, dry, no rashes, positive pallor. NEUROLOGIC: Cranial nerves 2 through 12 are intact. The patient is nonfocal. LABORATORY DATA: Hemoglobin 8.9, hematocrit 27.8, white blood cell count 7.3, platelets are 186. Sodium 137, potassium 4.7, chloride 98, BUN 94, creatinine 16. Troponin 0.106, 0.101, 0.100. UA negative for bacteria or leukocyte esterase. ASSESSMENT: 1. Presyncope, unclear etiology. Carotids are negative. Echo showing normal left ventricular systolic function and grade 1 diastolic dysfunction. 2. End-stage renal disease, on peritoneal dialysis. 3. Right bundle-branch block, which is a known finding. 4. Type 2 diabetes mellitus. 5. Hypertension. PLAN: At this time, he will continue peritoneal dialysis per Dr. Trevino. We will await further recommendations if any from Nephrology since they have been consulted. Given the patient's risk factors and abnormal EKG, I have recommended an outpatient cardiology workup in the future. Likely a stress test might be deemed appropriate. Continue antihypertensive regimen and we will await Nephrology recommendations. Job ID: [id number]
[2018-10-02] MEDS ORDERED: Atorvastatin Calcium 40 MG TAB PO SCH (21:00)
--- NOTE | 2018-10-02 22:33 | CON ---
DATE OF CONSULTATION: REASON FOR CONSULTATION: Need for renal replacement therapy. IMPRESSION: 1. End-stage renal disease, on peritoneal dialysis. 2. Presyncopal episode, query cause. 3. Hypertension. PLAN: 1. The patient to be on peritoneal dialysis regimen, mimicking what he does at home using 2.5% DIANEAL fluid. 2. Check orthostatics. 3. Follow up the ultrafiltration of the peritoneal dialysis. 4. The patient's machine might need to be re-evaluated, possibly re-calibrated, as whatever the patient so far, may have something to do with machine dysfunction, cannot completely rule out what sounds like an embolism. HISTORY OF PRESENT ILLNESS: A 53-year-old gentleman with end-stage renal disease, peritoneal dialysis dependent, whom I saw in the office for a monthly visit on Wednesday, presented here on Wednesday with a complaint of presyncopal episode. The patient noticed malfunction of his machine, not draining very well and the patient was in the process of converting to manual drainage when a sudden surge of unexplained sensation went up to his head and patient syncopized. Similar episode happened about 2 or 3 times prior to presentation. However, according to the patient, has not felt the surge as he came in and the machine that is being used seems to have functioned very well. As a result of the need for maintenance peritoneal dialysis regimen, decision was taken to involve Renal in the management of this case. PAST MEDICAL HISTORY: Significant for end-stage renal disease, peritoneal dialysis dependent, diabetes mellitus, and hypertension. FAMILY HISTORY: Not significantly related to present illness. SOCIAL HISTORY: . No alcohol. No tobacco use. ALLERGIES: NO KNOWN DRUG ALLERGIES. REVIEW OF SYSTEMS: As documented in the body of the history. All other systems were reviewed and found not to be significantly related to present illness. PHYSICAL EXAMINATION: GENERAL: The patient was found not to be in any obvious distress, noted with the following vital signs. VITAL SIGNS: Afebrile, temperature 98.2, pulse 79, respiratory rate of 16, O2 saturation 96% with blood pressure 146/76. HEENT: Unremarkable. Moist oral mucosa. NECK: Supple. No conjunctival injection or icterus. CARDIOVASCULAR SYSTEM: First and second heart sounds were heard. RESPIRATORY SYSTEM: Clear to auscultation anteriorly. DIGESTIVE SYSTEM: Revealed a benign abdomen. EXTREMITIES: Shows some peripheral edema. SKIN: No new gross rash. LYMPHATICS: No peripheral lymphadenopathy. SUMMARY: A 53-year-old gentleman with end-stage renal disease, on peritoneal dialysis, who presented here status post syncopal episode. Thank you for this consultation. We will follow with you. Job ID: [id number]
[2018-10-03 06:52] LABS: #Basophils 0.1 thou/uL (0.0-0.2); #Eosinphils 0.3 thou/uL (0.0-0.7); #Lymphocytes 2.6 thou/uL (1.20-3.40); #Neutrophils 3.9 thou/uL (1.40-6.50); %Basophils 1.4 % (0.0-1.0); %Eosinophils 3.6 % (0.0-10.0); %Lymphocytes 33.6 % (21.0-51.0); %Monocytes 12.1 % (0.0-10.0); %Neutrophils 49.4 % (42.0-75.0); Hemoglobin 9.3 g/dL (14.0-18.0); Mean Corpuscular HGB CONC 31.5 g/dL (32.0-36.0); Mean Corpuscular Hemoglobin 24.1 pg (27.0-31.0); Mean Corpuscular Volume 76.4 fL (78.0-98.0); Mean Platelet Volume 9.4 fL (7.4-10.4); Platelet Count 176 thou/uL (130-400); RBC Distribution Width 16.7 % (11.5-14.5); Red Blood Cell (RBC) Count 3.87 mill/uL (4.70-6.10); White Blood Cell (WBC) Count 7.9 thou/uL (4.8-10.8)
[2018-10-03 07:10] LABS: Anion Gap 18 mmol/L (10-20); BUN (Urea Nitrogen) 90 mg/dL (8.4-25.7); Calc. Creatinine Clearance 6 mL/min (70-130); Calcium 9.6 mg/dL (7.8-10.44); Carbon Dioxide 26 mmol/L (22-29); Chloride 97 mmol/L (98-107); Estimated GFR-MDRD 3; Glucose 272 mg/dL (70-105); Potassium 4.7 mmol/L (3.5-5.1); Sodium 136 mmol/L (136-145)
[2018-10-03] MEDS: HumaLOG 300 UNITS/3 ML VIAL SC PRN ×2 (07:20→12:15)
[2018-10-03] MEDS: Amlodipine 10 MG TAB PO SCH (08:24)
[2018-10-03] MEDS: Ferrous Sulfate 325 MG TAB PO SCH (08:24)
[2018-10-03] MEDS: Calcium Acetate 667 MG CAP PO SCH ×2 (08:24→12:15)
[2018-10-03] MEDS: Famotidine 20 MG TAB PO SCH (08:25)
[2018-10-03] MEDS: Aspirin 81 mg Enteric Coated Tablet PO SCH (08:25)
[2018-10-03] MEDS: Carvedilol 6.25 MG TAB PO SCH (08:25)
[2018-10-03] MEDS: Heparin 5,000 UNITS/ML VIAL SC SCH (08:26)
[2018-10-03] MEDS: Bumetanide 1 MG TAB PO SCH (08:26)
[2018-10-03 12:27] VITALS: TEMP 97.7
[2018-10-03 12:55] VITALS: BP 156/80
--- NOTE | 2018-10-03 16:21 | PRG ---
DATE OF SERVICE: 10/03/2018 SUBJECTIVE: The patient was seen and examined, doing much better, very eager to go home. Noted with the following vital signs. OBJECTIVE: VITAL SIGNS: Afebrile. Temperature 97.7, pulse 74, respiratory rate of 20, blood pressure of 162/80. HEENT: Unremarkable. CARDIOVASCULAR SYSTEM: First and second heart sounds were heard. RESPIRATORY SYSTEM: Clear to auscultation DIGESTIVE: Revealed a benign abdomen with positive bowel sounds. EXTREMITIES: No peripheral edema. SKIN: No new gross rash. LYMPHATICS: No peripheral lymphadenopathy. IMPRESSION: 1. End-stage renal disease, on peritoneal dialysis. 2. Presyncopal episode . PLAN: 1. The patient seems to be doing very well. Therefore, from renal standpoint, the patient can be discharged with a plan to follow up to re-evaluate this patient with dialysis machine at home. 2. Further management will be dependent on the clinical course. Job ID: [id number]
== END 2018-10-03 14:31 | disposition home or self-care (01) ==
LOC: ERS 15:15 → 2SW 19:07
PROVIDERS: ADMIT Hospitalist; ATTEND Hospitalist
DX: R55 Syncope and collapse (principal); I12.0 Hypertensive chronic kidney disease with stage 5 chronic kidney disease or end stage renal disease; E11.22 Type 2 diabetes mellitus with diabetic chronic kidney disease; N18.6 End stage renal disease; D63.1 Anemia in chronic kidney disease; I16.0 Hypertensive urgency; I21.A1 Myocardial infarction type 2; I45.10 Unspecified right bundle-branch block; Z99.2 Dependence on renal dialysis; Z79.4 Long term (current) use of insulin; Z79.82 Long term (current) use of aspirin; Z79.899 Other long term (current) drug therapy
CPT/HCPCS: 36415; 36416; 71045; 80048; 80053; 81003; 81015; 82553; 83690; 84484; 85025; 87070; 87205; 89051; 90945; 93005; 93306; 93880; G0257; G0378; J1644

== ENCOUNTER 2018-11-27 09:44 | Inpatient (IN) | payer OTHER, MEDICARE ==
[2018-11-27 10:36] LABS: #Basophils 0.2 thou/uL (0.0-0.2); #Eosinphils 0.4 thou/uL (0.0-0.7); #Lymphocytes 3.1 thou/uL (1.20-3.40); #Monocytes 0.8 thou/uL (0.11-0.59); #Neutrophils 5.3 thou/uL (1.40-6.50); %Basophils 2.3 % (0.0-1.0); %Eosinophils 4.3 % (0.0-10.0); %Lymphocytes 31.3 % (21.0-51.0); %Monocytes 7.9 % (0.0-10.0); %Neutrophils 54.2 % (42.0-75.0); Hemoglobin 12.5 g/dL (14.0-18.0); Mean Corpuscular HGB CONC 33.3 g/dL (32.0-36.0); Mean Corpuscular Hemoglobin 25.3 pg (27.0-31.0); Mean Corpuscular Volume 75.8 fL (78.0-98.0); Platelet Count 165 thou/uL (130-400); RBC Distribution Width 15.9 % (11.5-14.5); Red Blood Cell (RBC) Count 4.95 mill/uL (4.70-6.10); White Blood Cell (WBC) Count 9.8 thou/uL (4.8-10.8)
[2018-11-27 10:52] LABS: ALT (SGPT) 39 U/L (8-55); AST (SGOT) 21 U/L (5-34); Albumin 4.1 g/dL (3.5-5.0); Alkaline Phosphatase 68 U/L (40-150); Anion Gap 26 mmol/L (10-20); BUN (Urea Nitrogen) 84 mg/dL (8.4-25.7); Bilirubin, Total 0.7 mg/dL (0.2-1.2); Calc. Creatinine Clearance 0 mL/min (70-130); Carbon Dioxide 18 mmol/L (22-29); Chloride 88 mmol/L (98-107); Estimated GFR-MDRD 3; Globulin 3.7 g/dL (2.4-3.5); Glucose 77 mg/dL (70-105); Protein, Total 7.8 g/dL (6.0-8.3); Sodium 128 mmol/L (136-145)
--- NOTE | 2018-11-27 10:55 | RAD ---
EXAM: CHEST ONE VIEW HISTORY: Dyspnea, weakness, chest pain and trouble breathing. COMPARISON: 10/01/2018. FINDINGS: Cardiac silhouette remains mildly enlarged. The pulmonary vasculature is within normal limits. The po ngs are clear. Remote upper right posterior rib fractures are again seen. IMPRESSION: No acute cardiopulmonary process.
[2018-11-27 10:56] LABS: Phosphorus 9.5 mg/dL (2.3-4.7)
[2018-11-27] MEDS ORDERED: Aspirin Chewable 81 MG TAB ONE (11:02)
[2018-11-27 11:10] LABS: Bicarbonate (HCO3v) 19.8 mmol/L (22.0-28.0); CO2 Tension (PvCO2) 35.7 mmHg (40.0-50.0); Calcium, Ionized 0.88 mmol/L (See Comments:); Chloride 94 mmol/L (98-107); Potassium 4.9 mmol/L (3.5-5.1); Sodium 124 mmol/L (138-145); T. Carbon Dioxide 20.9 mmol/L (22.0-28.0)
[2018-11-27 11:15] LABS: Magnesium 2.7 mg/dL (1.6-2.6)
[2018-11-27] MEDS ORDERED: Nitroglycerin 2% Ointment 1 INCH/1 GM Packet ONE (11:39)
[2018-11-27] MEDS ORDERED: Furosemide 40 MG/4 ML VIAL ONE (11:39)
[2018-11-27 11:42] LABS: CKMB 19.4 ng/mL (0-6.6)
[2018-11-27] MEDS ORDERED: Acetaminophen 325 MG TAB PO PRN (11:44)
[2018-11-27] MEDS ORDERED: Bisacodyl 5 MG TAB PO PRN ×2 (11:44→11:45)
[2018-11-27] MEDS ORDERED: Senokot S 8.6-50 MG TAB PO PRN ×2 (11:44→11:45)
[2018-11-27] MEDS ORDERED: Ondansetron PF 4 MG/2 ML Vial IVP PRN ×2 (11:44→11:45)
[2018-11-27] MEDS ORDERED: cloNIDine 0.1 MG TAB PO PRN (11:45)
[2018-11-27] MEDS ORDERED: Benzonatate 100 MG CAP PO PRN (11:45)
[2018-11-27] MEDS ORDERED: Diabetic Tussin 200 MG/10 ML UDCUP PO PRN (11:45)
[2018-11-27] MEDS ORDERED: hydrALAZINE 20 MG/ML VIAL SLOW IVP PRN (11:45)
[2018-11-27] MEDS ORDERED: Nitroglycerin 0.4 MG TAB (25 Tab Bottle) SL PRN (11:45)
[2018-11-27] MEDS ORDERED: Sodium Chloride 0.65% Nasal 44 ML BOT EA NARE PRN (11:45)
[2018-11-27] MEDS ORDERED: Dextrose 5% in Water 1,000 ML IV PRN (11:49)
[2018-11-27] MEDS ORDERED: HumaLOG 300 UNITS/3 ML VIAL SC PRN ×2 (11:49)
[2018-11-27] MEDS ORDERED: Dextrose 50% Abboject 50 ML SYRINGE SLOW IVP PRN (11:49)
[2018-11-27 12:27] LABS: Bacteria/HPF None Seen HPF (None Seen); Bilirubin Negative (Negative); Blood, Urine Large (Negative); Clarity CLEAR (Clear); Glucose, Urine (Dipstick) 100 mg/dL (Negative); Hyaline Casts/LPF 4-6 HYALINE CAST LPF (0-3 Hyaline); Leukocyte Negative (Negative); Nitrite Negative (Negative); Pathc Cast-AUWi Flag 1.49 (0-2.49); Protein, Urine (Dipstick) > or equal to 300 mg/dL (Neg-Trace); Specific Gravity, Urine 1.015 (1.002-1.036); Urobilinogen 0.2 mg/dL (0.2-1.0)
[2018-11-27 12:29] LABS: Renal Epithelial None Seen HPF (0-3); Transitional Epithelial NONE SEEN HPF (0-3)
--- NOTE | 2018-11-27 13:29 | HP ---
PRIMARY CARE PHYSICIAN: None, the patient is a [employer]. CHIEF COMPLAINT: Chest pain and shortness of breath. HISTORY OF PRESENTING ILLNESS: is a 53-year-old male with past medical history of end-stage renal disease, on peritoneal dialysis; as well as diabetes; hypertension; history of shingles; who presented to the emergency room with above-mentioned complaint. History is mainly obtained by the patient's daughter present at bedside. Electronic medical records have been reviewed and the case has been discussed with admitting ER physician, Dr. Samuels. reports that he gets his peritoneal dialysis regularly every day, but yesterday he was at his daughter's birthday republican, which continued overnight and he could not do his peritoneal dialysis. This morning, he woke up and was itchy all over, was having trouble breathing, chills, and mild chest pain. He has no recent illnesses. Otherwise, no fever, chills, cough, nausea, vomiting, diarrhea, or abdominal pain. He did have some abdominal fullness this morning. He had some alcoholic drinks last night as well. Otherwise, he reports compliance with his medications except for the phosphorus binders. His daughter reports that he forgets to take extra phosphate binders that he is supposed to take whenever he is drinking nonalcoholic beverages like sodas. Upon presentation to the ER today, his blood pressure was 159/87 and he was otherwise hemodynamically stable. He had multiple electrolyte abnormalities including hyperphosphatemia with phosphorus of 9.5, hypermagnesemia with magnesium of 2.7. His BUN is 84, creatinine 18.72 with a sodium of 128. His BNP is elevated to 239, creatine kinase 2400, with CK-MB of 19 and troponin of 0.049. Lipase is mildly elevated at 93. Urinalysis shows multiple squamous epithelial cells, rbc's, proteinuria, and glucosuria. Chest x-ray did not show any significant pulmonary vascular congestion. He is now being admitted for emergent dialysis and electrolyte imbalances. PAST MEDICAL HISTORY: 1. End-stage renal disease, on peritoneal dialysis. Dr. Trevino is his bilingual medical assistant. 2. Diabetes mellitus. 3. Hypertension. 4. History of shingles. PAST SURGICAL HISTORY: 1. Left eye surgery due to retinal detachment. 2. Right eye surgery for eye hemorrhage. 3. PD catheter placement. PSYCHIATRIC HISTORY: No anxiety. No depression. FAMILY HISTORY: Denies any significant family history of coronary artery disease or stroke. Some family members have diabetes. SOCIAL HISTORY: He is living with his family and occasional alcohol use. He has no recreational drug or tobacco abuse. ALLERGIES: NO KNOWN MEDICATION ALLERGIES. HOME MEDICATIONS: As per the ER records, 1. Novolin 70/30 twice a day, unknown dose. 2. Atorvastatin 40 mg daily. 3. Carvedilol 6.25 mg b.i.d. 4. Amlodipine 10 mg daily. 5. Calcium acetate 4 tablets 2 times a day. 6. Famotidine 20 mg daily. 7. Aspirin 81 mg daily. 8. Bumex 2 mg twice a day. 9. Iron 65 mg daily. 10. Vitamin D3 of 2000 units daily. REVIEW OF SYSTEMS: A 14-point review of systems is done. It is negative except for those mentioned in the history and physical. LABORATORY DATA: His CBC is essentially unremarkable. Hemoglobin is 12.5. His VBG shows pCO2 of 35, pO2 of 63, pH of 7.3. Serum chemistries; sodium 128, chloride 88, bicarb 18, anion gap 26, BUN 84, creatinine 18.72, phosphorus 9.5, magnesium 2.7. Creatine kinase 2423, CK-MB 19.4, and troponin 0.049. BNP 239. Lipase 93. Chest x-ray, by my review, has no evidence to suggest any pleural effusion, edema, or infiltrate. A 12-lead EKG, by my review, shows normal sinus rhythm at 77 beats per minute and incomplete right bundle-branch block. Normal ST and T-waves. PHYSICAL EXAMINATION: VITAL SIGNS: Upon presentation, blood pressure of 159/87, pulse of 78, respirations 16, temperature 98, and saturating 98% on room air. GENERAL: He is somewhat somnolent, but in no acute distress. He is awake, alert, and oriented x3. HEENT: Mucous membrane is moist and pink. No oropharyngeal exudate or erythema. Head is normocephalic and atraumatic. Pupils are equal and reactive to light and accommodation. Extraocular movement intact. NECK: Supple without any lymphadenopathy, JVD, or bruit. CHEST: Clear to auscultation without any wheezing, rales, or rhonchi. HEART: Rate and rhythm are regular without any murmurs, rubs, or gallops. ABDOMEN: Soft, nontender, and nondistended with positive bowel sounds. EXTREMITIES: Show +1 pitting edema, more so in the right lower extremity than the left lower extremity. NEUROLOGIC: Nonfocal. PSYCHIATRIC: Normal affect. CODE STATUS: Full code discussed with the patient and his family at bedside. IMPRESSION AND PLAN: 1. Acute on chronic kidney disease. This is secondary to missed peritoneal dialysis. We have consulted his bilingual medical assistant, Dr. Chung for emergent peritoneal dialysis with removal of fluid and electrolyte normalization. We will restart his calcium acetate for hyperphosphatemia. 2. Anion gap metabolic acidosis. This is secondary to #1. Once again, PD needs to be started emergently. We will recheck and follow it throughout the rest of his hospitalization. 3. Hyperphosphatemia and hypermagnesemia, as #1. 4. Hyponatremia. Monitor on a daily basis and avoid excessive free water. 5. Chest pain due to #1 with mild fluid overload based on his history and elevated BNP. Fluid removal through peritoneal dialysis as tolerated. 6. Mild rhabdomyolysis. Once again, this is due to missed dialysis. Recheck in the morning. 7. Diabetes mellitus. Restart his home medications once the dose is confirmed and in meanwhile, put him on insulin sliding scale. 8. Hypertension. Restart his carvedilol and amlodipine. 9. Dyslipidemia. Restart Lipitor. 10. Deep venous thrombosis and gastrointestinal prophylaxis with subcu heparin and Pepcid. DISPOSITION: is currently being admitted to the hospital with multiple electrolyte abnormalities due to missed peritoneal dialysis leading to chest pain and shortness of breath. Estimated length of stay at this time is at least 2 to 3 midnights. Further management will depend upon his clinical course. Job ID: [id number]
[2018-11-27 14:17] LABS: Troponin I 0.039 ng/mL (< 0.028)
[2018-11-27 15:40] VITALS: BMI 27.4
[2018-11-27] MEDS: Calcium Acetate 667 MG CAP PO SCH ×2 (16:45→18:36)
[2018-11-27] MEDS: Bumetanide 1 MG TAB PO SCH (16:45)
[2018-11-27] MEDS: Carvedilol 6.25 MG TAB PO SCH (16:46)
[2018-11-27 17:12] LABS: Troponin I 0.068 ng/mL (< 0.028)
[2018-11-27 18:57] LABS: Troponin I 0.061 ng/mL (< 0.028)
[2018-11-27] MEDS ORDERED: Atorvastatin Calcium 40 MG TAB PO SCH (21:00)
[2018-11-27] MEDS: Heparin 5,000 UNITS/ML VIAL SC SCH (21:28)
[2018-11-27 22:16] LABS: Troponin I 0.033 ng/mL (< 0.028)
--- NOTE | 2018-11-28 01:06 | CON ---
DATE OF CONSULTATION: CONSULTING PHYSICIAN: Belinda Chung MD REASON FOR CONSULTATION: Need for maintenance dialysis. IMPRESSION: 1. End-stage renal disease, on peritoneal dialysis, skipped dialysis last night because of partying. 2. Shortness of breath and chest discomfort, possibly related to skipping dialysis fluid retention. PLAN: 1. There is no emergent indication for renal replacement therapy. Otherwise, the patient would have transiently gotten hemodialysis. In any case, we will have the patient dialyzed with a slightly stronger concentration of dialysate in order to increase ultrafiltration. 2. Further management will be dependent on the clinical course. HISTORY OF PRESENT ILLNESS: A 53-year-old gentleman with end-stage renal disease, peritoneal dialysis dependent who skipped dialysis last night because of libertarian that was going on that made the patient to finish partying very late and decided to forego dialysis. The patient, however, presented with difficult to breathing and chest pain for which the patient has been admitted and worked up. PAST MEDICAL HISTORY: Significant for 1. End-stage renal disease. 2. Type 2 diabetes. 3. Hypertension. 4. History of shingles. FAMILY HISTORY: Not significantly related to present illness. SOCIAL HISTORY: . No tobacco. No illicit drug use. REVIEW OF SYSTEMS: As documented in the body of the history. All other systems were reviewed and found not to be significantly related to present illness. PHYSICAL EXAMINATION: GENERAL: The patient was not to be in any obvious distress, sleepy but arousable, noted with the following vital signs. VITAL SIGNS: Afebrile, temperature 98.3, pulse 69, respiratory rate of 18, O2 saturations of 93%, blood pressure 156/83. HEENT: Unremarkable. CARDIOVASCULAR: First and second sounds were heard. RESPIRATORY: Clear to auscultation. DIGESTIVE: Revealed a benign abdomen. Positive bowel sounds. EXTREMITIES: No peripheral edema. SKIN: No new gross rash. LYMPHATICS: No peripheral lymphadenopathy. In summary, a 53-year-old gentleman with end-stage renal disease, peritoneal dialysis dependent, who presented here with chest discomfort, status post skipping dialysis. Thank you for this consultation. We will follow with you. Job ID: [id number]
[2018-11-28 04:09] LABS: #Basophils 0.1 thou/uL (0.0-0.2); #Eosinphils 0.3 thou/uL (0.0-0.7); #Lymphocytes 2.4 thou/uL (1.20-3.40); #Monocytes 0.8 thou/uL (0.11-0.59); #Neutrophils 4.7 thou/uL (1.40-6.50); %Basophils 1.4 % (0.0-1.0); %Eosinophils 3.5 % (0.0-10.0); %Lymphocytes 28.7 % (21.0-51.0); %Monocytes 9.5 % (0.0-10.0); %Neutrophils 56.9 % (42.0-75.0); Hemoglobin 11.8 g/dL (14.0-18.0); Mean Corpuscular HGB CONC 33.4 g/dL (32.0-36.0); Mean Corpuscular Hemoglobin 25.1 pg (27.0-31.0); Mean Corpuscular Volume 75.1 fL (78.0-98.0); Mean Platelet Volume 10.3 fL (7.4-10.4); Platelet Count 156 thou/uL (130-400); RBC Distribution Width 15.9 % (11.5-14.5); White Blood Cell (WBC) Count 8.2 thou/uL (4.8-10.8)
[2018-11-28 04:35] LABS: Anion Gap 25 mmol/L (10-20); BUN (Urea Nitrogen) 92 mg/dL (8.4-25.7); Calc. Creatinine Clearance 5 mL/min (70-130); Calcium 8.6 mg/dL (7.8-10.44); Carbon Dioxide 20 mmol/L (22-29); Chloride 89 mmol/L (98-107); Estimated GFR-MDRD 3; Glucose 201 mg/dL (70-105); Potassium 3.9 mmol/L (3.5-5.1); Sodium 130 mmol/L (136-145)
[2018-11-28] MEDS: Calcium Acetate 667 MG CAP PO SCH ×3 (08:14→18:32)
[2018-11-28] MEDS: Bumetanide 1 MG TAB PO SCH ×2 (08:14→18:32)
[2018-11-28] MEDS: Carvedilol 6.25 MG TAB PO SCH ×2 (08:16→18:33)
[2018-11-28] MEDS: Heparin 5,000 UNITS/ML VIAL SC SCH (08:16)
[2018-11-28] MEDS ORDERED: Famotidine 20 MG TAB PO SCH (09:00)
[2018-11-28] MEDS ORDERED: Amlodipine 10 MG TAB PO SCH (09:00)
--- NOTE | 2018-11-28 10:43 | PDOC.PN ---
- Subjective Encounter Start Date: 11/28/18 Encounter Start Time: 12:30 Subjective: Patient feeling much better. No more SOB. No chest pain. Ambulating -: well. No complaints. - Objective MAR Reviewed: Yes Vital Signs & Weight: Vital Signs (12 hours) Temp Pulse Resp BP Pulse Ox 11/28/18 08:00 98.2 F 67 14 142/78 H 96 11/28/18 04:18 98.5 F 76 18 166/86 H 98 Weight Weight 170 lb 1.6 oz I&O: 11/27/18 11/28/18 11/29/18 06:59 06:59 06:59 Intake Total 400 Balance 400 Result Diagrams: 11/28/18 03:44 11/28/18 03:44 Additional Labs: Accuchecks 11/28/18 11/27/18 11/27/18 05:31 20:15 16:47 POC Glucose 198 H 102 90 11/27/18 10:24 POC Glucose 75 Phys Exam - Physical Examination Constitutional: NAD HEENT: moist MMs Respiratory: no wheezing, no rales, no rhonchi, clear to auscultation bilateral Cardiovascular: RRR, no significant murmur Gastrointestinal: soft, positive bowel sounds Musculoskeletal: no edema Neurological: non-focal Psychiatric: normal affect, A&O x 3 Dx/Plan (1) ESRD needing dialysis Code(s): N18.6 - END STAGE RENAL DISEASE; Z99.2 - DEPENDENCE ON RENAL DIALYSIS Status: Acute Comment: peritoneal dialysis overnight for severe volume overload, Dr. Trevino following (2) Hyperphosphatemia Code(s): E83.39 - OTHER DISORDERS OF PHOSPHORUS METABOLISM Status: Acute Comment: resuming phosphate binders (3) Diabetes type 2, controlled Code(s): E11.9 - TYPE 2 DIABETES MELLITUS WITHOUT COMPLICATIONS Status: Chronic Qualifiers: Diabetes mellitus long term care administrator insulin use: with snf use Comment: resuming home insulin, on ISS (4) Dyslipidemia Code(s): E78.5 - HYPERLIPIDEMIA, UNSPECIFIED Status: Chronic (5) Hypertension Code(s): I10 - ESSENTIAL (PRIMARY) HYPERTENSION Status: Chronic (6) Chest pain Code(s): R07.9 - CHEST PAIN, UNSPECIFIED Status: Resolved Comment: due to volume overload, resolved with dialysis - Plan cont current plan of care, DVT proph w/heparin, DVT proph w/SCDs likely home later today if ok with nephrology * . - Discharge Day Encounter end time: 12:40
[2018-11-28] MEDS: Sevelamer Carbonate 800 MG TAB PO SCH ×2 (12:33→18:33)
[2018-11-28] MEDS ORDERED: Sevelamer Carbonate 800 MG TAB PO PRN (12:49)
[2018-11-28] MEDS ORDERED: Calcium Acetate 667 MG CAP PO PRN (12:49)
[2018-11-28 16:28] VITALS: BP 140/68; TEMP 98.6
--- NOTE | 2018-11-28 18:31 | PRG ---
DATE OF SERVICE: 11/28/2018 SUBJECTIVE: The patient noted with the following vital signs. OBJECTIVE: VITAL SIGNS: Afebrile, temperature 98.6, pulse 66, respiratory rate of 15, O2 saturations are 97%, and blood pressure 140/68. HEENT: Unremarkable. Moist oral mucosa. No conjunctival injection or icterus. NECK: Supple. CARDIOVASCULAR SYSTEM: First and second heart sounds were heard. RESPIRATORY SYSTEM: Clear to auscultation. DIGESTIVE SYSTEM: Revealed a benign abdomen. Positive bowel sounds. EXTREMITIES: No peripheral edema. SKIN: No new gross rash. LYMPHATICS: No peripheral lymphadenopathy. IMPRESSION: 1. End-stage renal disease, on peritoneal dialysis. 2. Fluid overload, doing very well. PLAN: 1. From the renal standpoint, the patient is due for discharge. 2. Further management will be dependent on the clinical course. Job ID: [id number]
[2018-11-28] MEDS ORDERED: HumuLIN 70/30 (300 UNITS/3 ML VIAL) SC SCH (21:00)
--- NOTE | 2018-11-29 04:36 | DIS ---
DATE OF ADMISSION: 11/27/2018 DATE OF DISCHARGE: 11/28/2018 PRIMARY CARE PHYSICIAN: Dawna Nunez. REASON FOR ADMISSION: End-stage renal disease with missed hemodialysis and volume overload. DIAGNOSES AT DISCHARGE: 1. End-stage renal disease, need dialysis, improved. 2. Hyperphosphatemia. 3. Diabetes mellitus, type 2. 4. Dyslipidemia. 5. Hypertension. 6. Chest discomfort, resolved. PROCEDURES: None. CONSULTATIONS: Nephrology, Belinda Chung MD SUMMARY OF HOSPITAL COURSE: This is a 53-year-old male with a history of end-stage renal disease, on peritoneal dialysis. He normally does peritoneal dialysis every day but had his daughter's 10th year celebration on the night before admission, so he avoided and did not do his dialysis. He also had some extra alcoholic drinks at the democrat. The patient had some chest discomfort in the morning of admission along with difficulty breathing. He was found to be in volume overload, also with persistent severe hyperphosphatemia. The patient was admitted. He was given peritoneal dialysis by Dr. Trevino in the hospital with extra fluid removal. He is feeling back to baseline the next day. He was ambulating well in the hallway and had no shortness of breath, no chest discomfort, and was eager to go home. DISCHARGE MANAGEMENT: Discharged home. FOLLOWUP: Follow up with Dr. Trevino as directed and with his primary care physician in 2 to 3 weeks. ACTIVITY: As tolerated. DIET: Fluid-restricted low-sodium renal diet. DISCHARGE MEDICATIONS: Continue all home medications. 1. Amlodipine 10 mg daily. 2. Aspirin 81 mg daily. 3. Atorvastatin 40 mg at night. 4. Bumetanide 2 mg twice a day. 5. Calcitriol 0.25 mcg daily. 6. Calcium acetate 667 mg 2 tablets 3 times a day with meals. 7. PhosLo 1 cap p.r.n. for snacks. 8. Carvedilol 6.25 mg twice a day. 9. Vitamin D3 of 2000 units daily. 10. Ferrous sulfate 65 mg daily. 11. Humulin 70/30, 7 units twice a day. 12. Renvela 800 mg 2 tablets 3 times a day with meals and 1 tablet as needed with snacks. Job ID: [id number]
[2018-11-29] MEDS ORDERED: Ferrous Sulfate 325 MG TAB PO SCH (08:00)
[2018-11-29] MEDS ORDERED: Aspirin 81 mg Enteric Coated Tablet PO SCH (09:00)
[2018-11-29] MEDS ORDERED: Calcitriol 0.25 MCG CAP PO SCH (09:00)
== END 2018-11-28 18:50 | disposition home or self-care (01) | DRG 640 ==
LOC: ERS 09:44 → ERHOLD 11:44 → 2NO 15:03
PROVIDERS: ADMIT Internal Medicine; ATTEND Internal Medicine
DX: E87.70 Fluid overload, unspecified (principal); N18.6 End stage renal disease; I12.0 Hypertensive chronic kidney disease with stage 5 chronic kidney disease or end stage renal disease; M62.82 Rhabdomyolysis; E83.41 Hypermagnesemia; E87.2 Acidosis; E87.1 Hypo-osmolality and hyponatremia; E83.39 Other disorders of phosphorus metabolism; R07.89 Other chest pain; E11.22 Type 2 diabetes mellitus with diabetic chronic kidney disease; Z79.4 Long term (current) use of insulin; Z98.890 Other specified postprocedural states; Z91.15 Patient's noncompliance with renal dialysis; Z99.2 Dependence on renal dialysis
CPT/HCPCS: 36415; 36416; 71045; 80048; 80053; 81003; 81015; 82330; 82550; 82553; 82803; 83690; 83735; 83880; 84100; 84484; 85025; 93005; 94760; J1644; J1815; J1940